=== PATIENT | male | born 1935 | race African-American/Black ===

== ENCOUNTER 2019-05-28 10:36 | Outpatient (CLI) | payer MEDICARE, OTHER ==
--- NOTE | 2019-05-28 20:07 | EKG ---
Test Reason : Blood Pressure : / mmHG Vent. Rate : 068 BPM Atrial Rate : 068 BPM P-R Int : 226 ms QRS Dur : 110 ms QT Int : 408 ms P-R-T Axes : 091 087 083 degrees QTc Int : 433 ms Sinus rhythm with 1st degree A-V block Otherwise normal ECG No previous ECGs available Confirmed by RAFAEL VARGAS, DR. Mcmahon ([id number]) on 05/28/2019 8:07:21 PM Referred By: NADYA Confirmed By:DR. Lisandro HALL MD
== END 2019-05-28 10:37 | disposition home or self-care (01) ==
LOC: LABBT 10:36
PROVIDERS: ATTEND Urology
DX: Z01.810 Encounter for preprocedural cardiovascular examination (principal); N20.0 Calculus of kidney; R31.0 Gross hematuria; R33.9 Retention of urine, unspecified
CPT/HCPCS: 81001; 87077; 87086; 87186; 93005; 93010

== ENCOUNTER 2019-06-17 08:13 | Day surgery (SDC) | payer MEDICARE, OTHER ==
[2019-06-16 10:10] VITALS: BMI 22.8
[2019-06-17] MEDS ORDERED: Levofloxacin 500 mg/D5W 100 ml Premix Bag ONE (09:08)
[2019-06-17] MEDS ORDERED: Iothalamate Meglumine 60% 50 ML VIAL FS ONE (09:47)
[2019-06-17] MEDS ORDERED: Fentanyl 100 MCG/2 ML VIAL ONE (11:22)
[2019-06-17] MEDS ORDERED: Ketorolac Tromethamine 30 MG/ML VIAL ONE (13:27)
[2019-06-17] MEDS ORDERED: Phenazopyridine HCl 97.5 MG TABLET ONE (13:28)
[2019-06-17] MEDS ORDERED: Oxybutynin 5 MG TAB ONE (13:28)
[2019-06-17] MEDS ORDERED: ePHEDrine 50 MG/ML VIAL ONE (15:46)
[2019-06-17] MEDS ORDERED: Ondansetron PF 4 MG/2 ML Vial ONE (15:46)
[2019-06-17] MEDS ORDERED: PROPOFOL 200 MG/20 ML VIAL ONE (15:46)
--- NOTE | 2019-06-17 17:35 | OP ---
DATE OF PROCEDURE: 06/17/2019 PREOPERATIVE DIAGNOSES: Bladder tumor, bladder stone. POSTOPERATIVE DIAGNOSES: Bladder tumor, bladder stone. PROCEDURES PERFORMED: Cystoscopy with bilateral retrograde pyelogram, laser cystolitholapaxy for 1 cm stone, transurethral resection of large bladder tumor. ANESTHESIA: General. COMPLICATIONS: None. ESTIMATED BLOOD LOSS: 100 mL. SPECIMEN: Bladder tumor. DESCRIPTION OF PROCEDURE: After informed consent, the patient was taken to the operating room and transferred to the table on his own power. Anesthesia was established. A time-out was performed showing the correct patient, site, and procedure. Preoperative antibiotics were administered. He was prepped and draped in the lithotomy position. I began by inserting the rigid cystoscope through the urethra down to the prostatic urethra noting a very large friable median lobe. The bladder was systematically examined noting [id number] trabeculation with several small diverticula and one large diverticulum protruding from the dome of the bladder. The large bladder tumor about 7 to 8 cm in size was just inside the lip of that diverticulum toward the patient's right side. A [place] catheter was utilized to perform bilateral retrograde pyelograms noting significant J-hooking of the ureters due to the enlarged prostate. There were no filling defects or abnormalities on retrograde pyelogram. I then used a 550 micron laser fiber to fragment the bladder stone into several pieces, which were irrigated out. I then switched to the resectoscope and using the resection loop, I removed the bladder tumor. This was somewhat difficult due to the fact that it was in a diverticulum and I did not want to resect too deeply as well as the fact that with the bladder distended with irrigation, I was only barely able to reach the tumor. I removed it in its entirety, noting no residual tumor and cauterized as best that I was able. His urine remained slightly bloody and so I elected to place a 3-way catheter. Before that, I used the [employer] evacuator to remove all specimen, which was passed off. I then placed a 22-Saudi Arabian 3-way catheter with 30 mL instilled in the balloon. I connected to continuous irrigation, which was running clear on very light drip. The patient was then awoken from anesthesia, transferred back to his hospital bed and taken to PACU in stable condition. I will evaluate him again shortly to determine if he can discharge home or if he needs to stay tonight. [place] ID: [id number]
--- NOTE | 2019-06-20 10:04 | EKG ---
Test Reason : PROEP Blood Pressure : / mmHG Vent. Rate : 078 BPM Atrial Rate : 078 BPM P-R Int : 286 ms QRS Dur : 110 ms QT Int : 394 ms P-R-T Axes : 071 -55 066 degrees QTc Int : 449 ms Sinus rhythm with 1st degree A-V block Left anterior fascicular block Abnormal ECG When compared with ECG of 28-MAY-2019 14:05, Left anterior fascicular block is now Present Confirmed by LISA LEIVA MD ([id number]) on 06/20/2019 10:04:36 AM Referred By: NADYA Confirmed By:LISA LEIVA MD
== END 2019-06-17 16:25 | disposition home or self-care (01) ==
LOC: SDC 08:13
PROVIDERS: ATTEND Urology
PROC: 0TCB8ZZ Extirpation of Matter from Bladder, Via Natural or Artificial Opening Endoscopic (ICD-10-PCS; principal; 2019-06-17)
PROC: 0T5B8ZZ Destruction of Bladder, Via Natural or Artificial Opening Endoscopic (ICD-10-PCS; 2019-06-17)
DX: C67.9 Malignant neoplasm of bladder, unspecified (principal); N32.3 Diverticulum of bladder; N21.0 Calculus in bladder; N40.1 Benign prostatic hyperplasia with lower urinary tract symptoms; R33.8 Other retention of urine; I10 Essential (primary) hypertension; E78.5 Hyperlipidemia, unspecified; M17.11 Unilateral primary osteoarthritis, right knee; Z87.891 Personal history of nicotine dependence; Z79.82 Long term (current) use of aspirin; Z79.899 Other long term (current) drug therapy
CPT/HCPCS: 76000; 88305; 93005; 93010; C1758; C1769; J1885; J1956; J3010

== ENCOUNTER 2019-07-31 06:59 | Outpatient (CLI) | payer MEDICARE, OTHER ==
[2019-07-31 15:29] LABS: #Basophils 0.1 thou/uL (0.0-0.2); #Eosinphils 0.1 thou/uL (0.0-0.7); #Lymphocytes 2.2 thou/uL (1.20-3.40); #Monocytes 0.4 thou/uL (0.11-0.59); #Neutrophils 2.5 thou/uL (1.40-6.50); %Basophils 1.1 % (0.0-1.0); %Eosinophils 2.4 % (0.0-10.0); %Lymphocytes 41.3 % (21.0-51.0); %Neutrophils 47.2 % (42.0-75.0); Hemoglobin 10.7 g/dL (14.0-18.0); Mean Corpuscular Hemoglobin 29.6 pg (27.0-31.0); Mean Corpuscular Volume 92.5 fL (78.0-98.0); Mean Platelet Volume 6.3 fL (7.4-10.4); Platelet Count 284 thou/uL (130-400); RBC Distribution Width 13.6 % (11.5-14.5); Red Blood Cell (RBC) Count 3.62 mill/uL (4.70-6.10); White Blood Cell (WBC) Count 5.4 thou/uL (4.8-10.8)
[2019-07-31 15:47] LABS: Anion Gap 12 mmol/L (10-20); BUN (Urea Nitrogen) 13 mg/dL (8.4-25.7); Calc. Creatinine Clearance 0 mL/min (70-130); Calcium 8.9 mg/dL (7.8-10.44); Carbon Dioxide 24 mmol/L (23-31); Chloride 102 mmol/L (98-107); Estimated GFR-MDRD 90; Glucose 90 mg/dL (83-110); Potassium 4.4 mmol/L (3.5-5.1); Sodium 134 mmol/L (136-145)
--- NOTE | 2019-08-01 17:57 | EKG ---
Test Reason : Blood Pressure : / mmHG Vent. Rate : 070 BPM Atrial Rate : 070 BPM P-R Int : 240 ms QRS Dur : 108 ms QT Int : 402 ms P-R-T Axes : 070 -25 058 degrees QTc Int : 434 ms Sinus rhythm with marked sinus arrhythmia with 1st degree A-V block Otherwise normal ECG When compared with ECG of 17-JUN-2019 08:30, No significant change was found Confirmed by Tiffany JEFFERSON ([id number]) on 08/01/2019 5:56:59 PM Referred By: NADYA Confirmed By:Tiffany JEFFERSON
== END 2019-07-31 07:00 | disposition home or self-care (01) ==
LOC: LABBT 06:59
PROVIDERS: ATTEND Urology
DX: Z01.818 Encounter for other preprocedural examination (principal); C67.9 Malignant neoplasm of bladder, unspecified
CPT/HCPCS: 80048; 85025; 93005; 93010

== ENCOUNTER 2019-08-05 07:40 | Day surgery (SDC) | payer MEDICARE, OTHER ==
[2019-08-05] MEDS ORDERED: Levofloxacin 500 mg/D5W 100 ml Premix Bag ONE (07:59)
[2019-08-05] MEDS ORDERED: Fentanyl 100 MCG/2 ML VIAL ONE (09:59)
[2019-08-05] MEDS ORDERED: Iothalamate Meglumine 60% 50 ML VIAL FS ONE (10:10)
[2019-08-05] MEDS ORDERED: ePHEDrine/0.9% NaCl/PF SYRINGE 50 mg/10 ml ONE (10:31)
[2019-08-05] MEDS ORDERED: Lidocaine 1% PF 5 ML VIAL ONE (10:31)
[2019-08-05] MEDS ORDERED: Ondansetron PF 4 MG/2 ML Vial ONE (10:31)
[2019-08-05] MEDS ORDERED: PROPOFOL 200 MG/20 ML VIAL ONE (10:31)
[2019-08-05] MEDS ORDERED: Ketorolac Tromethamine 30 MG/ML VIAL ONE (11:33)
[2019-08-05] MEDS ORDERED: Oxybutynin 5 MG TAB ONE (11:34)
--- NOTE | 2019-08-05 12:34 | RAD ---
EXAM: Cystogram HISTORY: Biopsy of the urinary bladder wall COMPARISON: None FINDINGS/IMPRESSION: A limited intraoperative fluoroscopic views shows contrast filling the urinary b ladder. A bubble of more dilute contrast is seen extending more superiorly. This may be within a different portion of the urinary bladder, but a contained leak is also a possibility.
--- NOTE | 2019-08-05 13:50 | OP ---
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 PROCEDURE PERFORMED: Transurethral resection of large bladder tumor, cystogram. ANESTHESIA: General. COMPLICATIONS: None. SPECIMEN: Bladder diverticulum tumor, base of tumor resection. DRAINS: A 20-[place]oz[place] Hoyos catheter placed at end of case. DESCRIPTION OF PROCEDURE: After informed consent, the patient was taken to the operating room, transferred to the table under his own power. Anesthesia was established. A time-out was performed showing the correct patient, site, and procedure. Preoperative antibiotics were administered. He was prepped and draped in the lithotomy position. The rigid cystoscope was advanced through the urethra noting a normal course and caliber of the urethra, through the prostate, noting coapting lateral lobes and a high bladder neck. The bladder was then entered and systematically examined, noting no mucosal abnormalities in the majority of the bladder. He does have a very large diverticulum off the dome of the bladder with some erythematous changes along the rim towards the right inferior side. I was able to pass the scope into the diverticulum and examined this noting about a 5-cm residual tumor bed with partial resection from his previous surgery. The bladder was filled with 120 mL of contrast and then saline until it appeared to be filled to capacity. A cystogram was performed showing a diverticulum of larger capacity than his actual bladder arising from the superior aspect of the bladder. At this point, I felt that if I controlled the irrigation flow carefully, I would be able to access the tumor in the diverticulum and so switched to the resectoscope using a resection loop. I was able to remove the bladder diverticulum tumor in its entirety. There were no abnormal areas remaining at the end of this. I then resected the edge of the diverticulum. There was no evidence of bladder rupture or perforation. All specimen was removed and passed off. I then removed a portion of the base of the resection to determine if any residual tumor persisted in this area. The bladder was then drained, reinspected, noting no bleeding. The scope was withdrawn and a 20-[place] Hoyos catheter was placed with 10 mL instilled in the balloon. This was connected to bag drainage. He was then awoken from anesthesia, transferred back to his hospital bed and taken to PACU in stable, where he will be discharged to home upon recovery. Job ID: [id number]
== END 2019-08-05 13:22 | disposition home or self-care (01) ==
LOC: SDC 07:40
PROVIDERS: ATTEND Urology
PROC: 0TBB8ZX Excision of Bladder, Via Natural or Artificial Opening Endoscopic, Diagnostic (ICD-10-PCS; principal; 2019-08-05)
DX: C67.1 Malignant neoplasm of dome of bladder (principal); N32.3 Diverticulum of bladder; I10 Essential (primary) hypertension; E78.5 Hyperlipidemia, unspecified; M17.11 Unilateral primary osteoarthritis, right knee; N40.1 Benign prostatic hyperplasia with lower urinary tract symptoms; R33.8 Other retention of urine; Z87.891 Personal history of nicotine dependence; Z79.2 Long term (current) use of antibiotics; Z79.82 Long term (current) use of aspirin; Z79.899 Other long term (current) drug therapy
CPT/HCPCS: 51600; 74430; 88307; 88342; J1885; J1956; J2001; J2405; J2704; J3010

== ENCOUNTER 2020-02-06 06:45 | Outpatient (CLI) | payer MEDICARE, OTHER ==
--- NOTE | 2020-02-09 11:48 | EKG ---
Test Reason : Blood Pressure : / mmHG Vent. Rate : 057 BPM Atrial Rate : 057 BPM P-R Int : 254 ms QRS Dur : 106 ms QT Int : 450 ms P-R-T Axes : 079 -08 052 degrees QTc Int : 438 ms Sinus bradycardia with sinus arrhythmia with 1st degree A-V block Non-specific intra-ventricular conduction delay Minimal voltage criteria for LVH, may be normal variant Abnormal ECG Confirmed by BOBBI ABREU ([id number]) on 02/09/2020 11:47:57 AM Referred By: NADYA Confirmed By:BOBBI ABREU
== END 2020-02-06 06:46 | disposition home or self-care (01) ==
LOC: LABBT 06:45
PROVIDERS: ATTEND Urology
DX: Z01.810 Encounter for preprocedural cardiovascular examination (principal); C67.9 Malignant neoplasm of bladder, unspecified
CPT/HCPCS: 93005; 93010

== ENCOUNTER 2020-02-10 05:45 | Observation (INO) | payer MEDICARE, OTHER ==
[2020-02-06 13:30] LABS: Mean Corpuscular HGB CONC 33.2 g/dL (32.0-36.0); Mean Corpuscular Hemoglobin 32.5 pg (27.0-31.0); Mean Corpuscular Volume 97.9 fL (78.0-98.0); Mean Platelet Volume 6.8 fL (7.4-10.4); Platelet Count 218 thou/uL (130-400); RBC Distribution Width 12.7 % (11.5-14.5); Red Blood Cell (RBC) Count 3.37 mill/uL (4.70-6.10); White Blood Cell (WBC) Count 4.8 thou/uL (4.8-10.8)
[2020-02-06 13:38] LABS: Anion Gap 9 mmol/L (10-20); BUN (Urea Nitrogen) 14 mg/dL (8.4-25.7); Calc. Creatinine Clearance 0 mL/min (70-130); Calcium 8.9 mg/dL (7.8-10.44); Carbon Dioxide 26 mmol/L (23-31); Chloride 106 mmol/L (98-107); Estimated GFR-MDRD Greater than 90; Glucose 90 mg/dL (83-110); Potassium 4.2 mmol/L (3.5-5.1); Sodium 137 mmol/L (136-145)
[2020-02-07 12:16] LABS: SARS-CoV-2 MS2 Positive; SARS-CoV-2 N Gene Negative; SARS-CoV-2 S Gene Negative; SARS-CoV-2 orf1ab Negative
[2020-02-10] MEDS ORDERED: Fentanyl 100 MCG/2 ML VIAL ONE (06:50)
[2020-02-10] MEDS ORDERED: Levofloxacin 500 mg/D5W 100 ml Premix Bag ONE (06:54)
[2020-02-10] MEDS ORDERED: Promethazine HCl 25 MG/ML VIAL SLOW IVP PRN (07:55)
[2020-02-10] MEDS ORDERED: Promethazine HCl 25 MG/ML VIAL IM PRN (07:55)
[2020-02-10] MEDS ORDERED: Ondansetron HCl/PF 4 MG/2 ML Vial IVP PRN (07:55)
--- NOTE | 2020-02-10 08:53 | RAD ---
EXAM: Retrograde IVP HISTORY: Bladder cancer COMPARISON: None FINDINGS/IMPRESSION: Limited intraoperative fluoroscopic views of the retrograde IVP were submitted f or interpretation. There is no evidence of hydronephrosis. Filling defects in the mid left ureter may represent air bubbles. No filling defects are seen in the right ureter.
[2020-02-10] MEDS ORDERED: Zolpidem Tartrate 5 MG TAB PO PRN (08:55)
[2020-02-10] MEDS ORDERED: diphenhydrAMINE 50 MG/ML VIAL IVP PRN (08:55)
[2020-02-10] MEDS ORDERED: hydrALAZINE 20 MG/ML VIAL SLOW IVP PRN (08:55)
[2020-02-10] MEDS ORDERED: Acetaminophen 500 MG TAB PO PRN (08:55)
[2020-02-10 10:17] VITALS: BMI 19.5
[2020-02-10] MEDS ORDERED: Lidocaine 1% PF 5 ML VIAL ONE (11:55)
[2020-02-10] MEDS ORDERED: PROPOFOL 200 MG/20 ML VIAL ONE (11:55)
[2020-02-10] MEDS ORDERED: Glycopyrrolate 0.2 MG/ML 5 ML SYRINGE ONE (11:55)
[2020-02-10] MEDS ORDERED: PHENYLEPHRINE-NS 100 MCG/ML 10 ML SYRINGE ONE (11:55)
[2020-02-10] MEDS ORDERED: Ondansetron PF 4 MG/2 ML Vial ONE (11:55)
[2020-02-10] MEDS: Sodium Chloride 0.9% 1,000 ML IV SCH ×2 (12:37→23:17)
[2020-02-10] MEDS: Amlodipine 10 MG TAB PO SCH (12:45)
[2020-02-10] MEDS: Ketorolac Tromethamine 30 MG/ML VIAL IVP SCH ×3 (13:15→23:15)
[2020-02-10] MEDS: Trospium 20 MG TAB PO SCH ×2 (13:15→20:22)
--- NOTE | 2020-02-10 18:48 | OP ---
DATE OF PROCEDURE: 02/10/2020 PREOPERATIVE DIAGNOSES: Bladder tumor, enlarged prostate with lower urinary tract symptoms. POSTOPERATIVE DIAGNOSES: Bladder tumor, enlarged prostate with lower urinary tract symptoms. PROCEDURES PERFORMED: Transurethral resection of large bladder tumor along posterior wall and medium bladder tumor of the diverticulum, transurethral resection of prostate, bilateral retrograde pyelogram. ANESTHESIA: General. COMPLICATIONS: None. BLOOD LOSS: 100 mL. SPECIMEN: Bladder tumor, prostate chips. DESCRIPTION OF PROCEDURE: After informed consent, the patient was taken to the operating room, transferred to the table under his own power. Anesthesia was established. A time-out was performed showing the correct patient, site, and procedure. Preoperative antibiotics were administered. He was prepped and draped in the lithotomy position. I began by inserting the rigid cystoscope through the urethra noting a normal course and caliber of the urethra and into the prostate, noting large coapting lateral lobes and a very large median lobe. I was unable to identify the ureters, which were located behind the median lobe. He did have a large bladder tumor emanating from the right posterior wall and a smaller bladder tumor about 2.5 to 3 cm in size along the area of previous resection in the diverticulum. There were no other mucosal abnormalities on 30 or 70-degree inspection. I then switched to the rigid resectoscope and removed the two bladder tumors, which were passed off the specimen. The resection beds were cauterized. The [employer]ik evacuator was used to remove all of the bladder specimen, which was passed off. I then performed resection of the midline prostate to allow for staging. However, due to the very large median lobe, I ended up having to completely resect the median lobe. I was concerned that I would be unable to adequately place a catheter by simply resecting a midline trough. Meticulous hemostasis was achieved, and the Ellik evacuator was used to remove the resultant prostate chips. I then switched back to the rigid cystoscope and was able to identify the ureters. A left and right retrograde pyelogram was performed showing good filling of both ureters with no hydronephrosis or filling defects in the renal pelvis. The scope was then carefully withdrawn, and a 22-Belgian 3-way catheter was placed with 30 mL instilled in the balloon. This was connected to CBI and bag drainage. At this point, the procedure was completed. He was brought down from lithotomy, awoken from anesthesia and transferred back to his hospital bed. He was taken to PACU and be admitted overnight. Job ID: [id number]
[2020-02-10] MEDS ORDERED: Atorvastatin Calcium 10 MG TAB PO SCH (21:00)
[2020-02-10] MEDS ORDERED: Aspirin 81 mg Enteric Coated Tablet PO SCH (21:00)
[2020-02-11] MEDS: Ketorolac Tromethamine 30 MG/ML VIAL IVP SCH (05:46)
[2020-02-11] MEDS: Sodium Chloride 0.9% 1,000 ML IV SCH (08:12)
[2020-02-11 08:21] VITALS: BP 169/76; TEMP 97.8
[2020-02-11] MEDS: Amlodipine 10 MG TAB PO SCH (08:56)
[2020-02-11] MEDS: Trospium 20 MG TAB PO SCH (10:54)
--- NOTE | 2020-02-12 03:14 | DIS ---
DATE OF ADMISSION: 02/10/2020 DATE OF DISCHARGE: 02/11/2020 CHIEF COMPLAINT: Bladder cancer. DISCHARGE DIAGNOSES: Malignant tumor bladder, enlarged prostate, and urinary retention. HOSPITAL COURSE: The patient underwent a transurethral resection of large bladder tumor, medium bladder tumor, and resection of prostate. He was maintained on continuous bladder irrigation overnight with urine clear the next morning. He was tolerating oral intake and having no discomfort. He was deemed stable for discharge home at that point. PHYSICAL EXAMINATION: Discharge exam; GENERAL: No acute distress, conversant. HEART: Regular rate and rhythm. LUNGS: Unlabored breathing. Symmetric chest expansion. ABDOMEN: Soft, nontender, and nondistended. No suprapubic tenderness. No flank tenderness. Catheter in good position, draining clear urine, off CBI. SKIN: Warm and dry. DISCHARGE MEDICATIONS: 1. Bactrim. 2. Oxybutynin. DISCHARGE PLAN: Pending pathology, I will likely perform a void trial in 2 weeks. Job ID: [id number]
== END 2020-02-11 10:04 | disposition home or self-care (01) ==
LOC: SDC 05:45 → ONC 07:33
PROVIDERS: ADMIT Urology; ATTEND Urology
PROC: 0TBB8ZX Excision of Bladder, Via Natural or Artificial Opening Endoscopic, Diagnostic (ICD-10-PCS; principal; 2020-02-10)
PROC: 0VB08ZZ Excision of Prostate, Via Natural or Artificial Opening Endoscopic (ICD-10-PCS; 2020-02-10)
DX: N40.1 Benign prostatic hyperplasia with lower urinary tract symptoms (principal); R33.8 Other retention of urine; C67.4 Malignant neoplasm of posterior wall of bladder; I10 Essential (primary) hypertension; E78.5 Hyperlipidemia, unspecified; M17.11 Unilateral primary osteoarthritis, right knee; Z87.891 Personal history of nicotine dependence; Z79.82 Long term (current) use of aspirin; Z79.899 Other long term (current) drug therapy; Z98.890 Other specified postprocedural states
CPT/HCPCS: 52240; 52601; 74420; 80048; 85027; 86850; 86900; 86901; 88305; 88307; U0003; 87635; 96361; 96374; 96375; G0378; J1885; J1956; J2001; J2405; J2704; J3010

== ENCOUNTER 2020-05-12 21:30 | Inpatient (IN) | payer MEDICARE, OTHER ==
--- NOTE | 2020-05-12 23:22 | PDOC.FPRHP ---
- History of Present Illness Chief Complaint: chills History of Present Illness: 84 y/o M with PMHx bladder cancer, HTN, HLD transferred from [place] ER for sepsis 2/2 UTI. Patient states he got a treatment for his bladder cancer earlier today, subsequently developed chills and his daughter took him to the ED where he was found to have a fever of 102F. Workup significant for UA with nitrites, bacteria, WBC, and a mild leukocytosis. Transferred to our facility due to meeting sepsis criteria with fever, leukocytosis, and infectious source. He has an indwelling crane catheter and has had several infections/positive urine cultures in the past. Patient states he last had a UTI approximately 3 weeks ago. He was placed on abx for this although he cannot recall which abx. He planned to f/u with Dr. Gunter for his UTIs soon. He denies any dysuria, malodorous urine, pain associated with crane, or discharge from crane. He does endorse some reddening of his urine. ED Course: given rocephin, cefepime, vanc - Allergies/Adverse Reactions Allergies Allergy/AdvReac Type Severity Reaction Status Date / Time No Known Allergies Allergy Verified 04/02/20 02:09 - Home Medications Medication Instructions Recorded Confirmed Type Aspirin [Aspir-Low] 81 mg PO HS 01/26/13 05/13/20 History Amlodipine [Norvasc] 10 mg PO DAILY 05/28/19 05/13/20 History Atorvastatin Calcium 10 mg PO HS 05/28/19 05/13/20 History Ondansetron [Zofran ODT] 4 mg PO Q6HR PRN 04/02/20 05/13/20 History Ciprofloxacin HCl [Cipro] 500 mg PO BID 05/13/20 05/13/20 History - History PMHx: bladder cancer, HTN, HLD PSHx: bladder tumor surgery FHx: prostate cancer, colon cancer Social: former smoker, former etoh use - Review of Systems General: reports: fever/chills. denies: weight/appetite/sleep changes ENT: denies: nasal congestion, rhinorrhea Respiratory: denies: cough, congestion, shortness of breath Cardiovascular: denies: chest pain, palpitation, edema Gastrointestinal: reports: constipation. denies: nausea, vomiting, diarrhea, abdominal pain Genitourinary: denies: dysuria, polyuria, discharge Skin: denies: rashes Musculoskeletal: denies: pain Neurological: denies: weakness - Vital signs BP: [127/57] HR: [81] RR: [16] Tmax: [98.3F] Pox: [100]% on [RA] Wt: [58.87 kg] - Physical Exam Constitutional: NAD, awake, alert and oriented, other (thin, appears malnourished) HEENT: EOMI, conjunctiva clear, grossly normal vision, grossly normal hearing, MMM, good dention, other (temporal wasting) Neck: supple, no LAD Chest: no-tender to palpation Heart: RRR, normal S1/S2, no murmurs/rubs/gallops, pulses present, no edema Lungs: CTAB, no respiratory distress Abdomen: soft, non-tender, bowel sounds present, other (crane catheter in place) Musculoskeletal: normal structure Neurological: no focal deficit Skin: no rash/lesions Heme/Lymphatic: no unusual bruising or bleeding, no LAD Psychiatric: normal mood and affect, good judgment and insight, intact recent and remote memory FMR H&P: Results - Labs Result Diagrams: 05/13/20 06:25 05/13/20 06:25 FMR H&P: A/P - Plan Sepsis 2/2 UTI Meeting sepsis criteria with mild leukocytosis and fever to 102F with UA sugge stive of UTI. Likely related to his indwelling crane catheter. Has grown multiple bacteria in past including a pseudomonas resistant to fluoroquinolones. s/p vanc, rocephin, cefepime in ED. - abx: vanc + cefepime, de-escalate pending urine cx - continue to monitor vitals, leukocytosis - f/u blood cx Recurrent UTIs Patient may be chronically colonized given indwelling catheter. Reports he was to f/u with ID Dr. Gunter for this. Bladder cancer s/p surgical intervention with indwelling crane catheter and continued intravesicular therapy. Unclear if fever 2/2 sepsis or intravesicular therapy on day of admission. - follows with Dr. Castro, urology HTN Normotensive in the setting of sepsis - will hold home anti-hypertensives HLD Previously treated with statin but reports he was told to stop taking this - held statin possible malnutrition Reports history of weight loss which has recently been improving. Temporal wasting noted on exam. - consider dietary consult FMR H&P: Upper Level - Plan Date/Time: 05/12/20 2322 I, [Marilyn Lujan ], have evaluated this patient and agree with findings/plan as outlined by manager of internal audit resident. Pertinent changes/additions are listed here. 84 yo M with bladder CA and chronic crane admitted for sepsis 2/2 UTI as [facility] TFX. Currently undergoing BCG treatment with Dr. Castro for his bladder CA. Received treatment this morning, noted fever today of 102F. Came to the ER. Endorsed fevers, chills, nausea. No emesis. dysuria. Dx with bladder CA in January with subsequent transurethral resection of bladder & prostate. Has had chronic crane since then. Was recently dx with UTI last week, has been taking ciprofloxacin. Record review shows pt with multiple UTIs, likely all catheter associated. Denies flank pain. Denies issues with urine output. Feels well otherwise. In ER was febrile, tachycardic with mild luekocytosis. Given 1g vanc, 2g cefepime, 2g rocephin and 30cc/kg bolus . PE: Gen- NAD CV- RRR Resp- CTAB, no distress Abd- Soft, ND, NT Back- No flank pain - Presence of indwelling crane. No purulence noted at entry site. Patient appears well. A/P: #Sepsis 2/2 UTI -Likely crane associated -UA: +nitrities, LE, WBCs -Leukocytosis, febrile, tachyardic- s/p 30cc/kg bolus -s/p Vanc, cefepime, & rocephin. Will continue vanc & cefepime given hx of enterococcus & pseudomonas UTI along with recent fluoroquinolon euse -Hemo stable, admit to medical/inpt -Pending Bcx, UCx -Consider treatment as cause of fever since pt appears well #DESHAWN vs. CKD -s/p fluid boluses, repeat BMP in AM #Recurrent UTIs -Likely 2/2 chronic crane -F/u uro OP #Bladder CA -s/p transurethral prostate & bladder resection -continue following with urology dvt ppx: lovenox gi ppx: n/i abx: vanc & cefepime dispo: >2 midnights pcp: Dr. Cortez Addendum - Attending - Attending Attestation Date/Time: 05/13/202054 I personally evaluated the patient and discussed the management with Dr. Jackson. I agree with the History, Examination, Assessment and Plan documented above with any addition or exceptions noted below. Essentially well appearing elderly man. In light of his + nitrites, prompt improvement post antibiotics, I think he either has a bacterial infection or mild post-bcg instillation symptoms as being more common than bcg sepsis. Patrick so will monitor overnight.
[2020-05-13 00:52] VITALS: BMI 18.1
[2020-05-13] MEDS: Sodium Chloride 0.9% 1,000 ML IV SCH ×2 (02:31→08:41)
[2020-05-13] MEDS ORDERED: Cefepime 2 GM in Sodium Chloride 0.9% 100 ML IVPB SCH (03:00)
[2020-05-13] MEDS: Cefepime 2 GM in Sodium Chloride 0.9% 100 ML IVPB SCH ×3 (04:11→19:28)
[2020-05-13] MEDS: Vancomycin 1 GM in Premix Bag 1 BAG IVPB SCH ×2 (05:14→17:12)
[2020-05-13 06:38] LABS: #Eosinphils 0.1 thou/uL (0.0-0.7); #Lymphocytes 1.5 thou/uL (1.20-3.40); #Monocytes 0.7 thou/uL (0.11-0.59); #Neutrophils 6.5 thou/uL (1.40-6.50); %Eosinophils 0.6 % (0.0-10.0); %Lymphocytes 17.3 % (21.0-51.0); %Monocytes 8.2 % (0.0-10.0); %Neutrophils 73.9 % (42.0-75.0); Hemoglobin 8.1 g/dL (14.0-18.0); Mean Corpuscular HGB CONC 31.5 g/dL (32.0-36.0); Mean Corpuscular Volume 85.9 fL (78.0-98.0); Mean Platelet Volume 6.6 fL (7.4-10.4); Platelet Count 277 thou/uL (130-400); RBC Distribution Width 14.8 % (11.5-14.5); Red Blood Cell (RBC) Count 2.98 mill/uL (4.70-6.10); White Blood Cell (WBC) Count 8.8 thou/uL (4.8-10.8)
[2020-05-13 06:56] LABS: Anion Gap 8 mmol/L (10-20); BUN (Urea Nitrogen) 16 mg/dL (8.4-25.7); Calc. Creatinine Clearance 53 mL/min (70-130); Carbon Dioxide 23 mmol/L (23-31); Chloride 104 mmol/L (98-107); Estimated GFR-MDRD Greater than 90; Glucose 104 mg/dL (83-110); Potassium 4.1 mmol/L (3.5-5.1); Sodium 131 mmol/L (136-145)
[2020-05-13] MEDS: Enoxaparin Sodium 40 MG/0.4 ML SYRINGE SC SCH (08:37)
--- NOTE | 2020-05-13 09:50 | PDOC.FM ---
- Subjective Subjective: No complaints this morning. Does not feel like he fevered overnight. No abdominal pain/discomfort. No events overnight. - Objective Vital Signs & Weight: Vital Signs (12 hours) Temp Pulse Resp BP Pulse Ox 05/13/20 08:30 99 05/13/20 07:42 98.7 F 65 18 105/52 L 99 05/13/20 04:13 98.7 F 64 16 122/57 L 98 05/13/20 01:05 100 05/13/20 00:32 98.3 F 81 16 127/57 L 100 Weight Weight 58.876 kg Result Diagrams: 05/13/20 06:25 05/13/20 06:25 Phys Exam - Physical Examination Constitutional: NAD thin Respiratory: no wheezing, no rales, clear to auscultation bilateral Cardiovascular: RRR Gastrointestinal: soft, non-tender, no distention, positive bowel sounds Musculoskeletal: pulses present, edema present Neurological: moves all 4 limbs Psychiatric: normal affect, A&O x 3 Skin: no rash, cap refill <2 seconds Dx/Plan - Plan Plan: Sepsis 2/2 UTI -sepsis criteria resolved -added culture to urine sample from [facility], urine culture from [facility] on 02/04 shows psuedomonas resistant to levoquin - abx: vanc + cefepime, de-escalate pending urine cx - continue to monitor vitals, leukocytosis - f/u blood cx Recurrent UTIs Patient may be chronically colonized given indwelling catheter. Reports he was to f/u with ID Dr. Gunter for this. Bladder cancer -s/p intravesicular bcg tx - follows with Dr. Castro, urology - discussed case, will see patient today. does not believe fevers related to bcg tx HTN Normotensive in the setting of sepsis - will hold home anti-hypertensives HLD Previously treated with statin but reports he was told to stop taking this - held statin possible malnutrition - consider dietary consult Plan: Will continue to treat with IV abx. Appreciate recs from Dr. Castro. Awaiting culture for sensitivities - hx of resistant UTI's. Addendum - Attending - Attending Attestation Date/Time: 05/13/20 [id number] I personally evaluated the patient and discussed the management with Dr. Treadwell. I agree with the History, Examination, Assessment and Plan documented above with any addition or exceptions noted below. The patient was feeling better today. Continue IV antibiotics. Awaiting blood and urine cultures. Dr. Castro notified that pt is in the hospital.
[2020-05-13] MEDS ORDERED: Ondansetron ODT 4 MG TAB PO PRN (10:48)
[2020-05-13 12:22] LABS: SARS-CoV-2 MS2 Positive; SARS-CoV-2 N Gene Negative; SARS-CoV-2 S Gene Negative; SARS-CoV-2 by NAA Not Detected (NotDetected); SARS-CoV-2 orf1ab Negative
[2020-05-13] MEDS ORDERED: Vancomycin 1 GM in Premix Bag 1 BAG IVPB SCH (18:00)
--- NOTE | 2020-05-13 20:02 | CON ---
DATE OF CONSULTATION: 05/13/2020 CHIEF COMPLAINT: Fevers. REASON FOR CONSULTATION: Urinary tract infection. HISTORY OF PRESENT ILLNESS: This is an 84-year-old male, followed by me for history of bladder cancer with tumor resected from his diverticulum with BCG therapy afterwards. He did have a recurrence after BCG induction near the trigone and is now currently undergoing re-induction BCG. He has myogenic failure with urinary retention, managed with indwelling Hoyos catheter and he has been having recurrent urinary tract infections. His most recent BCG was yesterday. Apparently, he developed fever at home with shaking and was taken to his local hospital, where he was febrile to 102. He was transferred to [place], where he was treated with broad-spectrum antibiotics with prompt resolution of his fever. Today, he tells me that he is not having any appreciable symptoms. He denies hematuria, suprapubic pain, flank pain, nausea, vomiting, fevers, or chills. His vitals have been stable overnight. PAST MEDICAL HISTORY: Bladder cancer, enlarged prostate, hypertension, urinary retention. PAST SURGICAL HISTORY: Transurethral resection of bladder tumor x2. FAMILY HISTORY: Positive for prostate cancer and colon cancer. SOCIAL HISTORY: Former smoker. No current substance abuse. ALLERGIES: NO KNOWN DRUG ALLERGIES. HOME MEDICATIONS: 1. Aspirin. 2. Amlodipine. 3. Atorvastatin. 4. Ondansetron. 5. Cipro. REVIEW OF SYSTEMS: A 12-point review of systems is negative except as mentioned in my HPI. PHYSICAL EXAMINATION: VITAL SIGNS: Febrile to 102 late last night. Otherwise, he has been afebrile with stable vitals. GENERAL: No acute distress. Conversant. HEENT: Head, normocephalic and atraumatic. Extraocular movements intact. NECK: Supple. Trachea midline. HEART: Regular rate and rhythm. LUNGS: Unlabored breathing. Symmetric chest expansion. ABDOMEN: Soft, nontender, nondistended. No suprapubic tenderness. No flank tenderness. Hoyos catheter in good position, draining clear urine. SKIN: Warm and dry. No peripheral edema or cyanosis. NEUROLOGIC: Alert and oriented x3. PSYCHIATRIC: Normal mood and affect. LABORATORY DATA: Reviewed. White count 8. Creatinine 0.85. Initial Gram stain, no organisms noted. ASSESSMENT AND PLAN: Urinary tract infection, bladder cancer, BCG therapy. The patient has not received treatment for BCG sepsis and yet has dramatically improved from yesterday. In my opinion, this suggests that his infection was from atypical bacteria. We will await urine culture results and if he does well overnight, we can likely send him home tomorrow with antibiotics based on his culture for 2 weeks. The patient and I discussed his situation and I advised that we hold off on any further BCG therapy for another three weeks. At that point, I will perform cystoscopy in the office. We will need to carefully consider further BCG therapy will be beneficial or if he needs to consider hospice versus radical cystectomy. Job ID: [id number]
[2020-05-13] MEDS: Aspirin 81 mg Enteric Coated Tablet PO SCH (20:22)
[2020-05-14] MEDS: Cefepime 2 GM in Sodium Chloride 0.9% 100 ML IVPB SCH ×3 (03:37→20:18)
[2020-05-14 05:49] LABS: Vancomycin, Trough 11.9 ug/mL
[2020-05-14] MEDS: Vancomycin HCl 750 MG in Sodium Chloride 0.9% 250 ML 250 ML IVPB SCH ×3 (06:57→22:10)
[2020-05-14] MEDS: Enoxaparin Sodium 40 MG/0.4 ML SYRINGE SC SCH (08:58)
--- NOTE | 2020-05-14 10:07 | PDOC.FM ---
- Subjective Subjective: No complaints this morning. Has not fevered again. Saw Dr. Castro last night and discussed ongoing treatment plan. No events overnight. - Objective Vital Signs & Weight: Vital Signs (12 hours) Temp Pulse Resp BP Pulse Ox 05/14/20 07:54 98.1 F 69 18 118/57 L 100 05/13/20 23:52 97.5 F L 71 16 141/65 H 100 Weight Admit Weight 58.876 kg Weight 58.876 kg I&O: 05/13/20 05/14/20 05/15/20 06:59 06:59 06:59 Intake Total 1635 Output Total 1225 Balance 410 Result Diagrams: 05/15/20 06:10 05/15/20 06:10 Phys Exam - Physical Examination Constitutional: NAD HEENT: sclera anicteric Respiratory: clear to auscultation bilateral Cardiovascular: RRR soft systolic murmur Gastrointestinal: soft Musculoskeletal: no edema, pulses present Neurological: moves all 4 limbs Psychiatric: normal affect, A&O x 3 Skin: cap refill <2 seconds Dx/Plan - Plan Plan: Sepsis 2/2 UTI -abx: vanc and cefepime -awaiting cultures for de-escalation and PO transition Bladder cancer -s/p intravesicular bcg tx - follows with Dr. Castro, urology - discussed case, will see patient today. does not believe fevers related to bcg tx - plan to dc tx x3 weeks and outpt cystoscopy HTN Normotensive in the setting of sepsis - will hold home anti-hypertensives HLD Previously treated with statin but reports he was told to stop taking this - held statin possible malnutrition - consider dietary consult Plan: Awaiting cultures to adjust abx for outpt tx. Addendum - Attending - Attending Attestation Date/Time: 05/14/20 1820 I personally evaluated the patient and discussed the management with Dr. Treadwell. I agree with the History, Examination, Assessment and Plan documented above with any addition or exceptions noted below. The patient is feeling much better. Awaiting urine culture results. Will continue on broad spectrum antibiotics. Appreciate urology recs.
--- NOTE | 2020-05-14 11:15 | PRG ---
DATE OF SERVICE: 05/14/2020 SUBJECTIVE: No acute events overnight. He is no longer having any fevers and denies any discomfort, nausea, flank pain, or suprapubic pain. OBJECTIVE: VITAL SIGNS: Afebrile, vital signs stable. Good urine output. GENERAL: No acute distress. Conversant. HEART: Regular rate and rhythm. ABDOMEN: Soft, nontender, nondistended. CHEST: Unlabored breathing. Symmetric chest expansion. No suprapubic tenderness or flank tenderness. : Hoyos catheter draining clear yellow urine. LABORATORY DATA: Urine culture pending. ASSESSMENT: Hospital day 2, febrile urinary tract infection following BCG. This responded appropriately to broad-spectrum antibiotics without specific tuberculosis agents. He has been stable since yesterday. Once his urine culture results, he can be discharged home with antibiotics for 7 days. I will see him in my clinic in 3 weeks to perform cystoscopy and begin discussing options from here. Job ID: [id number]
[2020-05-14] MEDS: Aspirin 81 mg Enteric Coated Tablet PO SCH (20:19)
[2020-05-15] MEDS: Cefepime 2 GM in Sodium Chloride 0.9% 100 ML IVPB SCH ×3 (03:58→20:05)
[2020-05-15 05:14] LABS: Vancomycin, Trough 18.1 ug/mL
--- NOTE | 2020-05-15 05:32 | PDOC.FM ---
- Subjective Subjective: Patient reports having BM yesterday that was normal consistency. Reports decreased appetite but is taking the shakes provided. NAEO. - Objective Vital Signs & Weight: Vital Signs (12 hours) Temp Pulse Resp BP Pulse Ox 05/14/20 20:20 98.5 F 68 16 144/64 H 100 Weight Admit Weight 58.876 kg Weight 58.876 kg I&O: 05/13/20 05/14/20 05/15/20 06:59 06:59 06:59 Intake Total 1635 1400 Output Total 1225 2350 Balance 410 -950 Result Diagrams: 05/15/20 06:10 05/15/20 06:10 Phys Exam - Physical Examination Constitutional: NAD resting comfortably in bed Respiratory: no wheezing, clear to auscultation bilateral Cardiovascular: RRR, no significant murmur Gastrointestinal: soft, non-tender Musculoskeletal: no edema, pulses present Neurological: non-focal, moves all 4 limbs Psychiatric: normal affect, A&O x 3 Skin: normal turgor, cap refill <2 seconds Dx/Plan (1) Bladder cancer Status: Acute (2) Indwelling Hoyos catheter present Code(s): Z97.8 - PRESENCE OF OTHER SPECIFIED DEVICES Status: Chronic (3) HTN (hypertension) Code(s): I10 - ESSENTIAL (PRIMARY) HYPERTENSION Status: Chronic (4) HLD (hyperlipidemia) Code(s): E78.5 - HYPERLIPIDEMIA, UNSPECIFIED Status: Chronic (5) Malnutrition Code(s): E46 - UNSPECIFIED PROTEIN-CALORIE MALNUTRITION Status: Chronic - Plan Plan: Sepsis 2/2 UTI -abx: vanc and cefepime -awaiting u cx for de-escalation and PO transition. Bl NGTD Bladder cancer -s/p intravesicular bcg tx - follows with Dr. Castro, urology, appreciate recs - DC with abx x 7 days after cultures/sensitivities result -likely dc tomorrow or Sunday HTN - will resume home medications today HLD Previously treated with statin but reports he was told to stop taking this - held statin Moderate malnutrition - ensure supplementation, regular diet Hyponatremia -131 on 05/14, improved to 134 today Plan: Awaiting cultures to adjust abx for outpt tx. Called lab, hopefully cx and sensitivities will result by tomorrow. Collected at the [facility]
[2020-05-15] MEDS: Vancomycin HCl 750 MG in Sodium Chloride 0.9% 250 ML 250 ML IVPB SCH ×3 (05:40→21:06)
[2020-05-15 06:19] LABS: #Basophils 0.1 thou/uL (0.0-0.2); #Eosinphils 0.3 thou/uL (0.0-0.7); #Lymphocytes 1.8 thou/uL (1.20-3.40); #Monocytes 0.8 thou/uL (0.11-0.59); #Neutrophils 4.2 thou/uL (1.40-6.50); %Basophils 1.5 % (0.0-1.0); %Eosinophils 4.6 % (0.0-10.0); %Lymphocytes 24.7 % (21.0-51.0); %Monocytes 11.6 % (0.0-10.0); %Neutrophils 57.6 % (42.0-75.0); Mean Corpuscular HGB CONC 30.7 g/dL (32.0-36.0); Mean Corpuscular Hemoglobin 26.7 pg (27.0-31.0); Mean Corpuscular Volume 87.1 fL (78.0-98.0); Mean Platelet Volume 6.7 fL (7.4-10.4); Platelet Count 283 thou/uL (130-400); RBC Distribution Width 14.8 % (11.5-14.5); Red Blood Cell (RBC) Count 3.36 mill/uL (4.70-6.10); White Blood Cell (WBC) Count 7.3 thou/uL (4.8-10.8)
[2020-05-15 06:32] LABS: Anion Gap 11 mmol/L (10-20); BUN (Urea Nitrogen) 12 mg/dL (8.4-25.7); Calc. Creatinine Clearance 62 mL/min (70-130); Calcium 8.3 mg/dL (7.8-10.44); Carbon Dioxide 23 mmol/L (23-31); Chloride 104 mmol/L (98-107); Estimated GFR-MDRD Greater than 90; Glucose 100 mg/dL (83-110); Potassium 4.1 mmol/L (3.5-5.1); Sodium 134 mmol/L (136-145)
[2020-05-15] MEDS: Amlodipine 10 MG TAB PO SCH (07:57)
[2020-05-15] MEDS: Enoxaparin Sodium 40 MG/0.4 ML SYRINGE SC SCH (07:58)
--- NOTE | 2020-05-15 18:11 | PRG ---
DATE OF SERVICE: 05/15/2020 Please see the note from Dr. Collins for which I agreed. The patient was seen, evaluated, discussed, and examined with the residents by bedside. The day of hospitalization 3 for this gentleman with chronic indwelling Hoyos because of bladder cancer. Has sepsis secondary to urinary tract infection and is currently on cefepime and vancomycin, and we are waiting on urine culture to find out which p.o. antibiotic we can switch in to because, otherwise physically, he is doing tremendously better, and I appreciate Dr. Castro's recommendations. Job ID: [id number]
[2020-05-15] MEDS: Aspirin 81 mg Enteric Coated Tablet PO SCH (20:07)
[2020-05-16] MEDS: Cefepime 2 GM in Sodium Chloride 0.9% 100 ML IVPB SCH ×3 (04:21→20:44)
[2020-05-16] MEDS: Vancomycin HCl 750 MG in Sodium Chloride 0.9% 250 ML 250 ML IVPB SCH (05:21)
[2020-05-16 06:34] LABS: #Eosinphils 0.4 thou/uL (0.0-0.7); #Monocytes 0.6 thou/uL (0.11-0.59); #Neutrophils 3.2 thou/uL (1.40-6.50); %Eosinophils 5.9 % (0.0-10.0); %Lymphocytes 32.3 % (21.0-51.0); %Monocytes 9.5 % (0.0-10.0); %Neutrophils 52.3 % (42.0-75.0); Hemoglobin 8.7 g/dL (14.0-18.0); Mean Corpuscular HGB CONC 31.2 g/dL (32.0-36.0); Mean Corpuscular Hemoglobin 27.1 pg (27.0-31.0); Mean Corpuscular Volume 86.8 fL (78.0-98.0); Mean Platelet Volume 8.4 fL (7.4-10.4); Platelet Count 251 thou/uL (130-400); RBC Distribution Width 14.8 % (11.5-14.5); Red Blood Cell (RBC) Count 3.22 mill/uL (4.70-6.10); White Blood Cell (WBC) Count 6.1 thou/uL (4.8-10.8)
[2020-05-16 06:51] LABS: Anion Gap 10 mmol/L (10-20); BUN (Urea Nitrogen) 13 mg/dL (8.4-25.7); Calc. Creatinine Clearance 58 mL/min (70-130); Calcium 8.2 mg/dL (7.8-10.44); Carbon Dioxide 24 mmol/L (23-31); Chloride 104 mmol/L (98-107); Estimated GFR-MDRD Greater than 90; Glucose 103 mg/dL (83-110); Potassium 3.9 mmol/L (3.5-5.1); Sodium 134 mmol/L (136-145)
--- NOTE | 2020-05-16 07:10 | PDOC.FM ---
- Subjective Subjective: No complaints today. He is wanting to go home. Eating, drinking, stooling with no concerns. No pain. - Objective Vital Signs & Weight: Vital Signs (12 hours) Temp Pulse Resp BP Pulse Ox 05/15/20 20:00 98 05/15/20 19:17 98.1 F 56 L 16 124/58 L 98 Weight Admit Weight 58.876 kg Weight 58.876 kg I&O: 05/15/20 05/16/20 05/17/20 06:59 06:59 06:59 Intake Total 2257 440 Output Total 3450 950 Balance -1193 -510 Result Diagrams: 05/16/20 06:14 05/16/20 06:14 Phys Exam - Physical Examination Constitutional: NAD cachectic, lying in bed Respiratory: no wheezing, clear to auscultation bilateral Cardiovascular: RRR, no significant murmur Gastrointestinal: soft, non-tender, no distention Musculoskeletal: no edema, pulses present Neurological: non-focal, moves all 4 limbs Psychiatric: normal affect, A&O x 3 Skin: normal turgor, cap refill <2 seconds Dx/Plan (1) Bladder cancer Status: Acute (2) Indwelling Hoyos catheter present Code(s): Z97.8 - PRESENCE OF OTHER SPECIFIED DEVICES Status: Chronic (3) HTN (hypertension) Code(s): I10 - ESSENTIAL (PRIMARY) HYPERTENSION Status: Chronic (4) HLD (hyperlipidemia) Code(s): E78.5 - HYPERLIPIDEMIA, UNSPECIFIED Status: Chronic (5) Malnutrition Code(s): E46 - UNSPECIFIED PROTEIN-CALORIE MALNUTRITION Status: Chronic - Plan Plan: Sepsis 2/2 Pseudomonal UTI -abx: vanc and cefepime -Bl cx NGTD @ 48 hrs -Multiresistant drug. -Sensitive to amikacin, cefepime, ceftazidime, meropenem, zosyn, tobramycin. Resistant to cipro, gent, levaquin -DC vanc -Will discuss what to DC to home on, consider consult with Dr. Gunter Bladder cancer -s/p intravesicular bcg tx - follows with Dr. Castro, urology, appreciate recs - recs DC with abx x 7 days after cultures/sensitivities result -likely dc today or Sunday once antiobiotic regimen established HTN - home meds HLD Previously treated with statin but reports he was told to stop taking this - held statin Moderate malnutrition - ensure supplementation, regular diet Hyponatremia, stable -134 Plan: Need to establish outpatient antibiotic regimen for multi-drug resistant pseudomonal UTI, then DC to home. Home possibly today or tomorrow.
[2020-05-16] MEDS: Enoxaparin Sodium 40 MG/0.4 ML SYRINGE SC SCH (08:49)
[2020-05-16] MEDS: Amlodipine 10 MG TAB PO SCH (08:49)
--- NOTE | 2020-05-16 10:26 | PRG ---
DATE OF SERVICE: 05/16/2020 Please see the note from Dr. Collins, for which I agree. The patient was seen and evaluated, discussed, and examined with the residents by bedside. This gentleman is here for UTI because of a chronic indwelling Hoyos. Urine culture grew out Pseudomonas that is fairly lópez resistant, although Infectious Disease to see if they want to do a PICC line and outpatient IV antibiotics versus a trial of quinolones. Symptom summers, he is doing better, so disposition will be based on that decision. Job ID: [id number]
[2020-05-16] MEDS: Aspirin 81 mg Enteric Coated Tablet PO SCH (20:44)
[2020-05-17] MEDS: Cefepime 2 GM in Sodium Chloride 0.9% 100 ML IVPB SCH ×3 (04:59→20:00)
--- NOTE | 2020-05-17 05:06 | PDOC.FM ---
- Subjective Subjective: Pt resting comfortably at bedside. No acute events overnight. States that he is feeling well, no complaints at this time. - Objective Vital Signs & Weight: Vital Signs (12 hours) Temp Pulse Resp BP Pulse Ox 05/16/20 20:00 98.3 F 67 16 142/67 H 99 Weight Admit Weight 58.876 kg Weight 58.876 kg I&O: 05/15/20 05/16/20 05/17/20 06:59 06:59 06:59 Intake Total 2257 440 1528 Output Total 3450 950 1325 Balance -1193 -510 203 Result Diagrams: 05/16/20 06:14 05/16/20 06:14 Phys Exam - Physical Examination Constitutional: NAD HEENT: PERRLA Respiratory: no wheezing, no rales, no rhonchi Cardiovascular: RRR, no significant murmur Gastrointestinal: soft, non-tender, no distention, positive bowel sounds Musculoskeletal: no edema, pulses present Neurological: non-focal, normal sensation, moves all 4 limbs Psychiatric: normal affect, A&O x 3 Skin: no rash, normal turgor, cap refill <2 seconds Dx/Plan (1) Bladder cancer Status: Acute (2) HLD (hyperlipidemia) Code(s): E78.5 - HYPERLIPIDEMIA, UNSPECIFIED Status: Chronic (3) HTN (hypertension) Code(s): I10 - ESSENTIAL (PRIMARY) HYPERTENSION Status: Chronic (4) Indwelling Hoyos catheter present Code(s): Z97.8 - PRESENCE OF OTHER SPECIFIED DEVICES Status: Chronic (5) Malnutrition Code(s): E46 - UNSPECIFIED PROTEIN-CALORIE MALNUTRITION Status: Chronic Qualifiers: Malnutrition type: unspecified type Qualified Code(s): E46 - Unspecified protein-calorie malnutrition - Plan Plan: ##Sepsis 2/2 Pseudomonal UTI -abx: vanc and cefepime started initially. vanc dc'd and continued on cefepime. -Bl cx NGTD @ 48 hrs -Hx of MDR UTI -Sensitive to amikacin, cefepime, ceftazidime, meropenem, zosyn, tobramycin. R esistant to cipro, gent, levaquin -plan to complete 7 days of IV abx total ##Bladder cancer -being treated by Dr. Castro for the past 6 months -s/p intravesicular bcg tx -recs DC with abx x 7 days ##HTN - home meds ##HLD Previously treated with statin but reports he was told to stop taking this - held statin ##Moderate malnutrition - ensure supplementation, regular diet ##Hyponatremia, stable -134 Dispo: plan to complete 7 days total of IV antibiotics. d/c likely tomorrow. Addendum - Attending - Attending Attestation Date/Time: 05/17/20 1311 I personally evaluated the patient and discussed the management with Dr. Leonard. I agree with the History, Examination, Assessment and Plan documented above with any addition or exceptions noted below.
[2020-05-17 05:31] LABS: Vancomycin, Trough 10.1 ug/mL
[2020-05-17] MEDS: Amlodipine 10 MG TAB PO SCH (08:32)
[2020-05-17] MEDS: Enoxaparin Sodium 40 MG/0.4 ML SYRINGE SC SCH (08:32)
[2020-05-17] MEDS: Aspirin 81 mg Enteric Coated Tablet PO SCH (20:00)
[2020-05-18] MEDS: Cefepime 2 GM in Sodium Chloride 0.9% 100 ML IVPB SCH ×3 (04:41→16:01)
--- NOTE | 2020-05-18 05:16 | PDOC.FM ---
- Subjective Subjective: Pt resting comfortably in bed this AM. No acute events overnight. States that he is doing well and has no complaints this AM. - Objective Vital Signs & Weight: Vital Signs (12 hours) Temp Pulse Resp BP Pulse Ox 05/17/20 19:52 98.4 F 66 16 132/61 100 Weight Admit Weight 58.876 kg Weight 58.876 kg I&O: 05/16/20 05/17/20 05/18/20 06:59 06:59 06:59 Intake Total 440 1528 980 Output Total 950 1325 950 Balance -510 203 30 Result Diagrams: 05/16/20 06:14 05/16/20 06:14 Phys Exam - Physical Examination Constitutional: NAD HEENT: PERRLA Neck: no nodes Respiratory: no wheezing, no rales, no rhonchi, clear to auscultation bilateral Cardiovascular: RRR, no significant murmur, no rub Gastrointestinal: soft, non-tender, no distention Musculoskeletal: no edema, pulses present Neurological: non-focal, normal sensation, moves all 4 limbs Psychiatric: normal affect, A&O x 3 Skin: no rash, normal turgor, cap refill <2 seconds Dx/Plan (1) Bladder cancer Status: Acute (2) HLD (hyperlipidemia) Code(s): E78.5 - HYPERLIPIDEMIA, UNSPECIFIED Status: Chronic (3) HTN (hypertension) Code(s): I10 - ESSENTIAL (PRIMARY) HYPERTENSION Status: Chronic (4) Indwelling Hoyos catheter present Code(s): Z97.8 - PRESENCE OF OTHER SPECIFIED DEVICES Status: Chronic (5) Malnutrition Code(s): E46 - UNSPECIFIED PROTEIN-CALORIE MALNUTRITION Status: Chronic Qualifiers: Malnutrition type: unspecified type Qualified Code(s): E46 - Unspecified protein-calorie malnutrition - Plan Plan: ##Sepsis 2/2 Pseudomonal UTI -abx: vanc and cefepime started initially. vanc dc'd and continued on cefepime. -Bl cx NGTD @ 48 hrs -Hx of MDR UTI -Sensitive to amikacin, cefepime, ceftazidime, meropenem, zosyn, tobramycin. Resistant to cipro, gent, levaquin -plan to complete 7 days of IV abx total ##Bladder cancer -being treated by Dr. Lacefield for the past 6 months -s/p intravesicular bcg tx -recs DC with abx x 7 days ##HTN - home meds ##HLD Previously treated with statin but reports he was told to stop taking this - held statin ##Moderate malnutrition - ensure supplementation, regular diet ##Hyponatremia, stable -134 Dispo: plan to complete 7 days total of IV antibiotics today. d/c likely today. discharge planning has been completed. Addendum - Attending - Attending Attestation Date/Time: 05/18/20 4416 I personally evaluated the patient and discussed the management with Dr. Leonard. I agree with the History, Examination, Assessment and Plan documented above with any addition or exceptions noted below.
[2020-05-18] MEDS: Amlodipine 10 MG TAB PO SCH (08:30)
[2020-05-18] MEDS: Enoxaparin Sodium 40 MG/0.4 ML SYRINGE SC SCH (08:30)
[2020-05-18 09:48] VITALS: BP 159/87; TEMP 98.2
--- NOTE | 2020-05-19 04:54 | DIS ---
DATE OF ADMISSION: 05/13/2020 DATE OF DISCHARGE: 05/18/2020 RESIDENT: Amparo Leonard DO ADMITTING ATTENDING: Efrem Severino MD DISCHARGE ATTENDING: Parmjit Sahu MD CONSULT: Kyle Castro MD of Urology. PROCEDURES: None. PRIMARY DIAGNOSIS: Sepsis secondary to urinary tract infection. SECONDARY DIAGNOSES: Recurrent urinary tract infections, bladder cancer, hypertension, hyperlipidemia, and malnutrition. DISCHARGE MEDICATIONS: 1. Aspirin 81. 2. Amlodipine 10. 3. Lipitor 10. 4. Zofran 4 mg. Discontinued medications, none. HISTORY OF PRESENT ILLNESS/HOSPITAL COURSE: This is an 84-year-old male with a past medical history of bladder cancer, hypertension, hyperlipidemia, who was a transfer from [facility] for sepsis secondary to UTI. He stated that he was getting BCG treatment for his bladder cancer earlier that day and developed chills and a fever of 102. His workup was significant for a urinalysis positive for nitrites, bacteria, and leukocytes. He has a chronic indwelling Hoyos catheter and has several infections and positive urine cultures in the past. He stated that he last had a UTI three weeks ago. He had planned to follow up with Dr. Gunter after his last UTI. He denied any dysuria, malodorous urine, pain associated with the Hoyos or discharge from his Hoyos. He did endorse some hematuria. His stay here was mostly unremarkable. In terms of his sepsis, he was initially started on vancomycin and cefepime and then continued on cefepime for a total of seven days. His urine culture had grown Pseudomonas, but his blood cultures had been negative Dr. Castro of Urology was consulted and followed him throughout his stay. He had recommended outpatient follow up with him in clinic after discharge. Pt completed 7 days total of IV antibiotics with no complications. DISPOSITION: Stable. DISCHARGE INSTRUCTIONS: 1. Location: Home. 2. Diet: Regular. 3. Activity: As tolerated. 4. Followup: Within one week with PCP Dr. Cast. F/u with Dr. Castro of Urology. F/u with Dr. Gunter of Infectious Disease. Job ID: [id number] [facility]
== END 2020-05-18 17:10 | disposition home or self-care (01) | DRG 698 ==
LOC: ERS 21:30 → ONC 05-13 00:39
PROVIDERS: ADMIT Emergency Medicine; ATTEND Emergency Medicine
DX: T83.511A Infection and inflammatory reaction due to indwelling urethral catheter, initial encounter (principal); A41.59 Other Gram-negative sepsis; E87.1 Hypo-osmolality and hyponatremia; E44.0 Moderate protein-calorie malnutrition; Z68.1 Body mass index [BMI] 19.9 or less, adult; Z16.24 Resistance to multiple antibiotics; Z20.828 Contact with and (suspected) exposure to other viral communicable diseases; N39.0 Urinary tract infection, site not specified; Y84.6 Urinary catheterization as the cause of abnormal reaction of the patient, or of later complication, without mention of misadventure at the time of the procedure; I10 Essential (primary) hypertension; E78.5 Hyperlipidemia, unspecified; C67.9 Malignant neoplasm of bladder, unspecified; N40.1 Benign prostatic hyperplasia with lower urinary tract symptoms; R33.8 Other retention of urine; Z79.899 Other long term (current) drug therapy; Z79.82 Long term (current) use of aspirin; Z87.891 Personal history of nicotine dependence; Z87.440 Personal history of urinary (tract) infections
CPT/HCPCS: 36415; 80048; 80202; 82010; 85025; 87205; 87635; 99285; J0692; J1650; J3370; J3490; J7050; U0003

== ENCOUNTER 2020-09-02 07:22 | Outpatient (CLI) | payer MEDICARE, OTHER ==
[2020-07-23 11:06] LABS: INR-International Normal Ratio 1.1; PTT 27.4 sec (22.0-33.0); Prothrombin Time 11.3 sec (9.5-12.1)
[2020-07-24 16:11] LABS: SARS-CoV-2 MS2 Positive; SARS-CoV-2 N Gene Positive; SARS-CoV-2 S Gene Positive; SARS-CoV-2 by NAA DETECTED (NotDetected); SARS-CoV-2 orf1ab Positive
== END 2020-09-02 07:23 | disposition home or self-care (01) ==
LOC: LABBT 07:22
PROVIDERS: ATTEND Urology
DX: U07.1 COVID-19 (principal); Z01.812 Encounter for preprocedural laboratory examination; C67.9 Malignant neoplasm of bladder, unspecified
CPT/HCPCS: 85610; 85730; 86850; 86900; 86901; 86920; U0003; 87635

== ENCOUNTER 2020-09-02 14:00 | Inpatient (IN) | payer MEDICARE, OTHER ==
[2020-10-07 16:15] LABS: Hemoglobin 11.1 g/dL (13.5-17.5); Mean Corpuscular HGB CONC 31.3 g/dL (32.0-36.0); Mean Corpuscular Hemoglobin 30.2 pg (27.0-33.0); Mean Corpuscular Volume 96.7 fl (81.2-95.1); Mean Platelet Volume 9.3 fl (7.4-10.4); Platelet Count 207 10x3/uL (150-450); RBC Distribution Width 15.8 % (11.5-14.5); Red Blood Cell (RBC) Count 3.67 10x6/uL (4.32-5.72); White Blood Cell (WBC) Count 4.9 10x3/uL (3.5-10.5)
[2020-10-07 16:22] LABS: Anion Gap 12 mmol/L (10-20); BUN (Urea Nitrogen) 16 mg/dL (8.4-25.7); Calc. Creatinine Clearance 0 mL/min (70-130); Calcium 9.2 mg/dL (7.8-10.44); Carbon Dioxide 26 mmol/L (23-31); Chloride 104 mmol/L (98-107); Glucose 90 mg/dL (83-110); Potassium 4.5 mmol/L (3.5-5.1); Sodium 137 mmol/L (136-145)
[2020-10-07 16:48] LABS: PTT 27.1 sec (22.0-33.0)
[2020-10-19] MEDS ORDERED: cefOXitin Sodium/Dextrose 2 GM/50 ML BAG ONE (08:59)
[2020-10-19] MEDS ORDERED: Fentanyl 100 MCG/2 ML VIAL ONE ×3 (09:01→16:54)
[2020-10-19] MEDS ORDERED: Acetaminophen 500 MG TAB PO PRN (09:41)
[2020-10-19] MEDS ORDERED: Naloxone HCl 0.4 mg/ml Vial IV PRN (09:45)
[2020-10-19] MEDS ORDERED: Hydrocerin (Eucerin) Cream 120 gm Jar TOP PRN (09:45)
[2020-10-19] MEDS ORDERED: Naloxone HCl 0.4 mg/ml Vial IVP PRN (09:45)
[2020-10-19] MEDS ORDERED: Promethazine HCl 25 MG/ML VIAL IM PRN ×2 (09:45→13:56)
[2020-10-19] MEDS ORDERED: Bupivacaine 0.25% 10 ML VIAL EPIDURAL PRN (09:45)
[2020-10-19] MEDS ORDERED: diphenhydrAMINE 25 MG CAP PO PRN (09:45)
[2020-10-19] MEDS ORDERED: Promethazine HCl 25 MG SUPP PR PRN (09:45)
[2020-10-19] MEDS ORDERED: Zolpidem Tartrate 5 MG TAB PO PRN (09:45)
[2020-10-19] MEDS ORDERED: traMADol HCl 50 MG TAB PO PRN ×2 (09:45)
[2020-10-19] MEDS ORDERED: diphenhydrAMINE 50 MG/ML VIAL IM PRN (09:45)
[2020-10-19] MEDS ORDERED: diphenhydrAMINE 50 MG/ML VIAL IVP PRN (09:45)
[2020-10-19] MEDS ORDERED: HYDROcodone/Acetaminophen 5/325 mg Tablet PO PRN ×2 (09:45)
[2020-10-19] MEDS ORDERED: XYLOCAINE 2%-EPI 1:100,000 20 ML VIAL ONE (10:00)
[2020-10-19] MEDS ORDERED: Bupivacaine 0.25% HCL 30 ML VIAL ONE ×2 (10:00→10:33)
[2020-10-19] MEDS ORDERED: Sodium Chloride 0.9% 10 ML ONE ×2 (10:02→18:50)
[2020-10-19] MEDS ORDERED: Fentanyl 250 MCG/5 ML VIAL ONE (10:03)
[2020-10-19] MEDS ORDERED: Glycopyrrolate 0.2 MG/ML 5 ML SYRINGE ONE (10:35)
[2020-10-19] MEDS ORDERED: Dexamethasone 20 MG/5 ML VIAL ONE (10:35)
[2020-10-19] MEDS ORDERED: PROPOFOL 200 MG/20 ML VIAL ONE (10:35)
[2020-10-19] MEDS ORDERED: Ondansetron PF 4 MG/2 ML Vial ONE (10:35)
[2020-10-19] MEDS ORDERED: ePHEDrine 50 MG/ML VIAL ONE (10:35)
[2020-10-19] MEDS ORDERED: Lidocaine 1.5% w/Epi 1:200K 30 ML VIAL (Epid Use) ONE (10:35)
[2020-10-19] MEDS ORDERED: Rocuronium Bromide 10 MG/ML (10ML VIAL) ONE (10:35)
[2020-10-19] MEDS ORDERED: Phenylephrine 10 MG/ML VIAL ONE (11:56)
[2020-10-19] MEDS ORDERED: hydrALAZINE 20 MG/ML VIAL SLOW IVP PRN (13:44)
[2020-10-19] MEDS ORDERED: Morphine Sulfate 2 MG/ML SYRINGE SLOW IVP PRN (13:56)
[2020-10-19] MEDS ORDERED: Promethazine HCl 25 MG/ML VIAL SLOW IVP PRN (13:56)
[2020-10-19] MEDS ORDERED: PACU-Morphine 4MG/ML VIAL SLOW IVP PRN (13:56)
[2020-10-19] MEDS ORDERED: Ondansetron HCl/PF 4 MG/2 ML Vial IVP PRN (13:56)
[2020-10-19] MEDS ORDERED: Furosemide 40 MG/4 ML VIAL ONE (14:28)
[2020-10-19 15:14] LABS: #Basophils 0.1 thou/uL (0.0-0.2); #Lymphocytes 1.2 thou/uL (1.20-3.40); #Monocytes 0.5 thou/uL (0.11-0.59); #Neutrophils 10.4 thou/uL (1.40-6.50); %Basophils 0.7 % (0.0-1.0); %Eosinophils 0.2 % (0.0-10.0); %Lymphocytes 9.7 % (21.0-51.0); %Monocytes 4.1 % (0.0-10.0); %Neutrophils 85.3 % (42.0-75.0); Hemoglobin 9.1 g/dL (14.0-18.0); Mean Corpuscular HGB CONC 31.8 g/dL (32.0-36.0); Mean Corpuscular Hemoglobin 31.8 pg (27.0-31.0); Mean Platelet Volume 6.8 fL (7.4-10.4); Platelet Count 203 thou/uL (130-400); RBC Distribution Width 13.8 % (11.5-14.5); Red Blood Cell (RBC) Count 2.85 mill/uL (4.70-6.10); White Blood Cell (WBC) Count 12.2 thou/uL (4.8-10.8)
[2020-10-19 15:32] LABS: Anion Gap 11 mmol/L (10-20); BUN (Urea Nitrogen) 14 mg/dL (8.4-25.7); Calc. Creatinine Clearance 0 mL/min (70-130); Carbon Dioxide 25 mmol/L (23-31); Chloride 106 mmol/L (98-107); Glucose 160 mg/dL (83-110); Potassium 3.8 mmol/L (3.5-5.1); Sodium 138 mmol/L (136-145)
--- NOTE | 2020-10-19 16:57 | RAD ---
EXAM: Single view of the chest HISTORY: Central line placement COMPARISON: 07/15/2020 FINDINGS: Single view of the chest shows a normal sized cardiomediastinal silhouette. There is a rig ht subclavian central venous catheter which extends up the neck. The tip is uncertain position and not definitely within the internal jugular vein. No pneumothorax. There is no evidence of consolidati on, mass, or pleural effusion. Free air beneath the diaphragm may be related recent surgery. IMPRESSION: 1. Right subclavian intravenous catheter has an unclear position. Correlate with ABG to ensure that t his is venous. 2. There is free air beneath the diaphragm which may be from recent surgery.
--- NOTE | 2020-10-19 17:00 | RAD ---
EXAM: Single view of the abdomen HISTORY: Stent placement COMPARISON: None FINDINGS: Single view of the abdomen shows a nonspecific, nonobstructive bowel gas pattern. A drain i s seen in the pelvis. Midline skin kiara are seen. Bilateral ureteral stents are seen which extend out of the right abdomen and likely extend out a diverting urostomy. No suspicious calcificati ons are seen. The bones are unremarkable. IMPRESSION: Appropriately placed ureteral stents as above
[2020-10-19] MEDS ORDERED: cefTRIAXone\\ROCEPHIN 1 GM VIAL ONE (18:41)
[2020-10-19] MEDS ORDERED: Sodium Chloride 0.9% 100 ML ONE (18:41)
[2020-10-19] MEDS: cefTRIAXone\\ROCEPHIN 1 GM in Sodium Chloride 0.9% 100 ML IVPB SCH (18:55)
[2020-10-19] MEDS ORDERED: D5 1/2 NS w/20 mEq KCL 1,000 ML ONE (19:51)
[2020-10-19] MEDS: Docusate 100 MG CAP PO SCH (21:28)
[2020-10-19] MEDS: Famotidine/PF 20 mg/2ml Vial SLOW IVP SCH (21:28)
[2020-10-19] MEDS: D5 1/2 NS w/20 mEq KCL 1,000 ML IV SCH (23:17)
[2020-10-20] MEDS: D5 1/2 NS w/20 mEq KCL 1,000 ML IV SCH ×3 (00:19→20:41)
[2020-10-20 05:08] LABS: #Monocytes 1.2 thou/uL (0.11-0.59); #Neutrophils 9.2 thou/uL (1.40-6.50); %Basophils 0.4 % (0.0-1.0); %Eosinophils 0.1 % (0.0-10.0); %Lymphocytes 15.8 % (21.0-51.0); %Monocytes 9.6 % (0.0-10.0); %Neutrophils 74.1 % (42.0-75.0); Hemoglobin 7.6 g/dL (14.0-18.0); Mean Corpuscular HGB CONC 32.2 g/dL (32.0-36.0); Mean Corpuscular Hemoglobin 31.5 pg (27.0-31.0); Mean Corpuscular Volume 97.8 fL (78.0-98.0); Platelet Count 183 thou/uL (130-400); RBC Distribution Width 13.6 % (11.5-14.5); Red Blood Cell (RBC) Count 2.42 mill/uL (4.70-6.10); White Blood Cell (WBC) Count 12.4 thou/uL (4.8-10.8)
[2020-10-20 05:41] LABS: Anion Gap 8 mmol/L (10-20); BUN (Urea Nitrogen) 23 mg/dL (8.4-25.7); Calc. Creatinine Clearance 27 mL/min (70-130); Calcium 7.7 mg/dL (7.8-10.44); Carbon Dioxide 25 mmol/L (23-31); Chloride 105 mmol/L (98-107); Glucose 170 mg/dL (83-110); Sodium 133 mmol/L (136-145)
[2020-10-20] MEDS ORDERED: Furosemide 20 MG/2 ML VIAL SLOW IVP SCH (07:00)
[2020-10-20] MEDS ORDERED: Calcium Gluconate 4.6 MEQ in Sodium Chloride 0.9% 100 ML IVPB SCH (08:22)
[2020-10-20] MEDS: Docusate 100 MG CAP PO SCH ×2 (08:40→20:42)
[2020-10-20] MEDS: Famotidine/PF 20 mg/2ml Vial SLOW IVP SCH (08:40)
[2020-10-20] MEDS: Aspirin 81 mg Enteric Coated Tablet PO SCH (08:40)
--- NOTE | 2020-10-20 08:43 | OP ---
DATE OF PROCEDURE: 10/19/2020 PREOPERATIVE DIAGNOSIS: Bladder cancer. POSTOPERATIVE DIAGNOSIS: Bladder cancer. PROCEDURES PERFORMED: Radical cystectomy with bilateral pelvic lymph node dissection, radical prostatectomy, ileal conduit diversion. ANESTHESIA: General, epidural. ESTIMATED BLOOD LOSS: 500 mL. SPECIMENS: Bladder and prostate, right and left pelvic lymph nodes, right and left distal ureter frozen section. DESCRIPTION OF PROCEDURE: After informed consent, the patient was taken to the operating room, transferred to the table under his own power. Anesthesia was established. A central line was placed by Dr. Rivera. A time-out was performed, showing the correct patient, site, and procedure. Preoperative antibiotics were administered. He was prepped and draped in the supine position. I began by placing an 18-L[place]ian Hoyos catheter with 10 mL instilled in the balloon. I made a midline incision from the pubic symphysis to above the umbilicus. This was carried down through his scant subcutaneous fat to fascia. Fascia was carefully entered in the midline. The abdomen was entered and the bladder mobilized. I noted that the bladder was somewhat affixed to the right pelvic sidewall. However, there were no abnormal lymph nodes palpable. This may simply be from his chronic infections. The right ureter was dissected free and traced down towards the right UVJ. The ureter was secured with clips and transected. The distal aspect of the ureter was sent off for frozen section, which returned negative. Similar process was repeated on the left side. I was then able to develop the bladder pedicles and take these down with the LigaSure device. Care was taken to avoid injury to the rectum facilitated by incising the peritoneum between the bladder and rectum with electrocautery. The endopelvic fascia was bluntly entered on both sides of the prostate and the planes on either side of the prostate developed down to the urethra. The patient had significant scarring and adhesions of the anterior aspect of the bladder. This was carefully taken down and the DVC controlled with the LigaSure device. The anterior aspect of the urethra was transected with a 10 blade and the catheter pulled up into the operative field before being transected to allow complete retraction into the field. Posterior urethra was then transected and Denonvillier's opened. The posterior plane behind the prostate was then bluntly developed and connected to the previously formed plane posterior to the bladder upon mobilization. The prostate pedicles were taken down with the LigaSure device and at this point, the specimen was complete. It was passed off. The patient did have a mild amount of bleeding from the urethra, which was controlled with Vicryl suture on UR6 needle. He had minimal oozing of the pelvis, which was then packed with a lap. The terminal ileum was identified and a segment about 10 to 12 cm in length, 15 cm from the ileocecal valve was selected. Appropriate vasculature in the mesentery was identified to supply the conduit and then the conduit removed from continuity with the bowel with kiara. The ileoileostomy was then performed using the MYLES stapler as well. Resultant mesenteric defect was closed in an interrupted fashion with silk suture. The left ureter was then anastomosed to the conduit after passing it underneath the sigmoid colon. After securing the ends of the anastomosis, a stent was passed into the left renal pelvis and secured through the conduit. The anastomosis was then completed in a running fashion with 4-0 Vicryl suture. A similar process was repeated on the right side. An appropriate location for the stoma was identified in the right lower quadrant, which should allow the patient to wear his pants above the bag. The stoma was brought out lateral to the rectus abdominis. This was secured with quadrant 0 Vicryl sutures. The stoma was then matured with 2-0 Vicryl suture. The lap in the pelvis was then removed, noting minimal oozing, but no active bleeding. Meredith was deployed after irrigating the belly. The drain was brought out through the left lower quadrant. Fascia was closed in a running fashion with 0 PDS suture. Skin was closed with skin kiara. The urostomy device was applied and connected to bag drainage. An island dressing was placed over the midline incision and a drain sponge over the drain site. He was then awoken from anesthesia, transferred back to his hospital bed and taken to PACU in stable condition, where he will be admitted to my service. Job ID: [id number]
--- NOTE | 2020-10-20 08:47 | PRG ---
DATE OF SERVICE: 10/20/2020 SUBJECTIVE: Minimal discomfort this morning, epidural seems to be working well. He denies fevers, nausea, chest pains, or difficulty breathing. OBJECTIVE: VITAL SIGNS: Afebrile, mildly hypertensive, heart rate regular. Urine output 175 overnight. MELY 165. LUNGS: Unlabored breathing. Symmetric chest expansion. HEART: Regular rate and rhythm. ABDOMEN: Soft, nondistended. Appropriately tender. Dressing in good position, clean and not soiled. Urostomy, healthy. Both stents in good position. Urine dripping from each stent, albeit slowly. EXTREMITIES: No peripheral edema or cyanosis. LABORATORY DATA: Reviewed. LABORATORY DATA: White count 12, hemoglobin 7.6. Sodium 133, creatinine 1.72, calcium 7.7. IMAGING: KUB reviewed. Stents in good position. ASSESSMENT AND PLAN: 1. Postoperative day #1, radical cystoprostatectomy with ileal conduit and pelvic lymph node dissection. 2. Routine postop care: Epidural managed by Anesthesia Pain Service, incentive spirometry, SCDs, holding Lovenox until at least tomorrow, out of bed to chair today, full liquid diet. 3. Consult PT, case management, wound care for ostomy education. 4. Hyponatremia. Observation for now, may need to transition to normal saline IV fluids. 5. Hypocalcemia, calcium gluconate ordered. 6. Acute kidney injury. Continue IV fluids, 20 mg of Lasix given this morning. Urine output seems to have picked up already. We will monitor this through the morning. 7. Acute blood loss anemia. Recheck H and H at noon. I suspect a component of this is dilution given the fluids. He received intraoperative and bolus in PACU yesterday and limited urine output afterwards. Job ID: [id number]
[2020-10-20] MEDS ORDERED: Enoxaparin Sodium 40 MG/0.4 ML SYRINGE SC SCH (09:00)
[2020-10-20] MEDS ORDERED: Fluconazole In NaCl,Iso-Osm 100 MG in Premix Bag 1 BAG IVPB SCH (09:00)
[2020-10-20] MEDS: Fluconazole In NaCl,Iso-Osm 100 MG, Admixture Fee 1 EACH in Premix Bag 1 BAG IVPB SCH (10:29)
[2020-10-20] MEDS: fentaNYL Citrate/PF 500 MCG, Bupivacaine 10 ML in Sodium Chloride 0.9% 80 ML EPIDURAL SCH (10:42)
[2020-10-20 12:00] LABS: Hemoglobin 7.3 g/dL (14.0-18.0); Platelet Count 163 thou/uL (130-400)
[2020-10-20] MEDS: cefTRIAXone\\ROCEPHIN 1 GM in Sodium Chloride 0.9% 100 ML IVPB SCH (13:30)
[2020-10-20] MEDS: Ondansetron PF 4 MG/2 ML Vial IVP PRN (15:36)
[2020-10-20] MEDS ORDERED: Furosemide 40 MG/4 ML VIAL SLOW IVP SCH (17:00)
[2020-10-21] MEDS: fentaNYL Citrate/PF 500 MCG, Bupivacaine 10 ML in Sodium Chloride 0.9% 80 ML EPIDURAL SCH ×2 (04:27→20:29)
[2020-10-21 05:20] LABS: #Eosinphils 0.4 thou/uL (0.0-0.7); #Lymphocytes 1.9 thou/uL (1.20-3.40); #Monocytes 0.7 thou/uL (0.11-0.59); #Neutrophils 6.3 thou/uL (1.40-6.50); %Basophils 0.1 % (0.0-1.0); %Eosinophils 4.8 % (0.0-10.0); %Lymphocytes 20.6 % (21.0-51.0); %Monocytes 7.2 % (0.0-10.0); %Neutrophils 67.3 % (42.0-75.0); Mean Corpuscular HGB CONC 31.2 g/dL (32.0-36.0); Mean Corpuscular Hemoglobin 30.5 pg (27.0-31.0); Mean Corpuscular Volume 97.6 fL (78.0-98.0); Mean Platelet Volume 7.2 fL (7.4-10.4); Platelet Count 160 thou/uL (130-400); RBC Distribution Width 13.4 % (11.5-14.5); Red Blood Cell (RBC) Count 1.97 mill/uL (4.70-6.10); White Blood Cell (WBC) Count 9.3 thou/uL (4.8-10.8)
[2020-10-21 05:40] LABS: Anion Gap 7 mmol/L (10-20); BUN (Urea Nitrogen) 29 mg/dL (8.4-25.7); Calc. Creatinine Clearance 26 mL/min (70-130); Calcium 7.6 mg/dL (7.8-10.44); Carbon Dioxide 24 mmol/L (23-31); Chloride 103 mmol/L (98-107); Glucose 109 mg/dL (83-110); Potassium 5.1 mmol/L (3.5-5.1); Sodium 129 mmol/L (136-145)
[2020-10-21] MEDS ORDERED: Furosemide 20 MG/2 ML VIAL IVP SCH (07:15)
[2020-10-21] MEDS: D5 1/2 NS w/20 mEq KCL 1,000 ML IV SCH (07:25)
[2020-10-21] MEDS: Docusate 100 MG CAP PO SCH ×2 (08:22→20:22)
[2020-10-21] MEDS: Aspirin 81 mg Enteric Coated Tablet PO SCH (08:22)
[2020-10-21] MEDS: Fluconazole In NaCl,Iso-Osm 100 MG, Admixture Fee 1 EACH in Premix Bag 1 BAG IVPB SCH (08:22)
[2020-10-21] MEDS: Famotidine/PF 20 mg/2ml Vial SLOW IVP SCH (08:23)
[2020-10-21] MEDS: Sodium Chloride 0.9% 1,000 ML IV SCH ×2 (08:23→16:47)
[2020-10-21] MEDS ORDERED: Enoxaparin Sodium 40 MG/0.4 ML SYRINGE SC SCH (09:00)
[2020-10-21] MEDS: cefTRIAXone\\ROCEPHIN 1 GM in Sodium Chloride 0.9% 100 ML IVPB SCH (13:23)
[2020-10-21] MEDS ORDERED: Calcium Gluconate 4.6 MEQ in Sodium Chloride 0.9% 100 ML IVPB SCH (15:30)
[2020-10-21 17:07] LABS: Hemoglobin 8.5 g/dL (14.0-18.0)
[2020-10-22] MEDS: Sodium Chloride 0.9% 1,000 ML IV SCH ×3 (03:30→17:02)
[2020-10-22 04:22] LABS: #Eosinphils 0.6 thou/uL (0.0-0.7); #Lymphocytes 1.9 thou/uL (1.20-3.40); #Monocytes 0.8 thou/uL (0.11-0.59); #Neutrophils 6.6 thou/uL (1.40-6.50); %Basophils 0.2 % (0.0-1.0); %Eosinophils 6.2 % (0.0-10.0); %Lymphocytes 18.7 % (21.0-51.0); %Monocytes 8.1 % (0.0-10.0); %Neutrophils 66.8 % (42.0-75.0); Mean Corpuscular Hemoglobin 32.5 pg (27.0-31.0); Mean Corpuscular Volume 95.6 fL (78.0-98.0); Mean Platelet Volume 7.1 fL (7.4-10.4); Platelet Count 150 thou/uL (130-400); RBC Distribution Width 13.9 % (11.5-14.5); Red Blood Cell (RBC) Count 2.46 mill/uL (4.70-6.10); White Blood Cell (WBC) Count 9.9 thou/uL (4.8-10.8)
[2020-10-22 04:39] LABS: Anion Gap 9 mmol/L (10-20); BUN (Urea Nitrogen) 22 mg/dL (8.4-25.7); Calc. Creatinine Clearance 45 mL/min (70-130); Calcium 7.9 mg/dL (7.8-10.44); Carbon Dioxide 23 mmol/L (23-31); Chloride 105 mmol/L (98-107); Glucose 86 mg/dL (83-110); Potassium 4.3 mmol/L (3.5-5.1); Sodium 133 mmol/L (136-145)
--- NOTE | 2020-10-22 05:59 | PRG ---
DATE OF SERVICE: 10/21/2020 SUBJECTIVE: No acute events overnight. The patient tells me that he feels well overall and has better appetite than yesterday. His pain is well controlled with his epidural. He denies chest pains, difficulty breathing, nausea, or fevers. OBJECTIVE: VITAL SIGNS: Stable, afebrile. Urine output 975 overnight. Drain output only 120, serosanguineous. CHEST: Unlabored breathing. Symmetric chest expansion. HEART: Regular rate and rhythm. ABDOMEN: Soft, nondistended. Appropriately tender. Dressing intact. GENITOURINARY: Urostomy healthy with stents in place dripping clear urine. EXTREMITIES: No peripheral edema. LABORATORY DATA: Reviewed. Hemoglobin trended down to 6.0. Creatinine remains elevated at 1.78. Calcium remains low at 7.6. Sodium has dropped slightly to 129. ASSESSMENT AND PLAN: 1. Postop day #2, radical cystoprostatectomy with ileal conduit and bilateral pelvic lymph node dissection. 2. Routine postop care, out of bed, PT, wound care, DVT and GI prophylaxis, SCDs, incentive spirometry. 3. Continue epidural through tomorrow or possibly Sunday. 4. Acute blood loss anemia. Transfuse 2 units. I still suspect that dilution plays a role here. I expect to see his blood count improve fairly dramatically as we transfuse him and he continues to increase urine output. 5. Hyponatremia, switching to normal saline infusion. 6. Hypocalcemia, administering calcium gluconate again. Job ID: [id number]
--- NOTE | 2020-10-22 08:56 | PRG ---
DATE OF SERVICE: 10/22/2020 SUBJECTIVE: Doing well overnight. No significant discomfort. He has been eating a small amount of his meals. He denies nausea or vomiting. He has been passing gas over the past 12 to 18 hours. No bowel movements. He denies headaches, chest pain, or difficulty breathing. OBJECTIVE: VITAL SIGNS AND GENERAL: Afebrile. Vitals are stable. Drain output 105, serosanguineous. Urine output 2500. He remains 1 to 2 L fluid positive. However, no acute distress. CHEST: Unlabored breathing. Symmetric chest expansion. HEART: Regular rate and rhythm. ABDOMEN: Soft, appropriately tender, nondistended. Stoma healthy. Stents in good position. Urine clear. No flank tenderness. EXTREMITIES: No peripheral edema. LABORATORY DATA: Reviewed. He did respond well to his 2 units yesterday with hemoglobin rising from 6.0 to 8.5 in the afternoon, 8.0 this morning, likely dilutional. Neutrophil percent 66.8. Creatinine has improved and is 1.05 today. Calcium normal. Sodium improved to 133 from 129. ASSESSMENT AND PLAN: Postop day 3, radical cystoprostatectomy with ileal conduit and bilateral pelvic lymph node dissection. Routine postop care, pain control with epidural for another 24 hours likely, continue diet, continue physical therapy, out of bed, ambulating into chair, incentive spirometry, deep venous thrombosis and gastrointestinal prophylaxis. Holding Lovenox tomorrow morning to facilitate epidural removal. Hyponatremia, improving with normal saline, continue. Fluid management: Reducing IV fluids to 50 mL/h. Continue 20 mg Lasix each morning. Acute blood loss anemia, resolved with 2 units yesterday. Repeat hemoglobin and hematocrit this afternoon to ensure that this does not continue to trend down. If he continues on his current trajectory, I expect he will discharge on Sunday or Sunday. Job ID: [id number]
[2020-10-22] MEDS: Docusate 100 MG CAP PO SCH ×2 (09:35→19:52)
[2020-10-22] MEDS: Furosemide 20 MG/2 ML VIAL SLOW IVP SCH (09:35)
[2020-10-22] MEDS: Famotidine/PF 20 mg/2ml Vial SLOW IVP SCH (09:35)
[2020-10-22] MEDS: Aspirin 81 mg Enteric Coated Tablet PO SCH (09:35)
[2020-10-22] MEDS ORDERED: HYDROcodone/Acetaminophen 10/325 mg Tablet PO PRN ×2 (10:23)
[2020-10-22] MEDS: Fluconazole In NaCl,Iso-Osm 100 MG, Admixture Fee 1 EACH in Premix Bag 1 BAG IVPB SCH (11:52)
[2020-10-22 13:59] LABS: Hemoglobin 8.9 g/dL (14.0-18.0)
[2020-10-22] MEDS: cefTRIAXone\\ROCEPHIN 1 GM in Sodium Chloride 0.9% 100 ML IVPB SCH (14:45)
[2020-10-22] MEDS: Ibuprofen 600 MG TAB PO SCH ×2 (16:53→19:52)
[2020-10-22] MEDS: Acetaminophen 500 MG TAB PO SCH ×2 (16:55→19:53)
[2020-10-22 17:53] VITALS: BMI 18.9
[2020-10-22] MEDS ORDERED: Enoxaparin Sodium 40 MG/0.4 ML SYRINGE SC SCH (21:00)
[2020-10-23] MEDS: Acetaminophen 500 MG TAB PO SCH ×4 (03:48→20:06)
[2020-10-23 05:37] LABS: #Eosinphils 0.7 thou/uL (0.0-0.7); #Lymphocytes 1.4 thou/uL (1.20-3.40); #Monocytes 0.6 thou/uL (0.11-0.59); #Neutrophils 4.6 thou/uL (1.40-6.50); %Eosinophils 9.5 % (0.0-10.0); %Lymphocytes 19.4 % (21.0-51.0); %Monocytes 8.5 % (0.0-10.0); %Neutrophils 62.5 % (42.0-75.0); Hemoglobin 7.4 g/dL (14.0-18.0); Mean Corpuscular HGB CONC 33.8 g/dL (32.0-36.0); Mean Corpuscular Hemoglobin 31.8 pg (27.0-31.0); Platelet Count 162 thou/uL (130-400); RBC Distribution Width 13.6 % (11.5-14.5); Red Blood Cell (RBC) Count 2.33 mill/uL (4.70-6.10); White Blood Cell (WBC) Count 7.3 thou/uL (4.8-10.8)
[2020-10-23 05:59] LABS: Anion Gap 11 mmol/L (10-20); BUN (Urea Nitrogen) 23 mg/dL (8.4-25.7); Calc. Creatinine Clearance 46 mL/min (70-130); Calcium 8.4 mg/dL (7.8-10.44); Carbon Dioxide 25 mmol/L (23-31); Chloride 105 mmol/L (98-107); Glucose 84 mg/dL (83-110); Potassium 3.7 mmol/L (3.5-5.1); Sodium 137 mmol/L (136-145)
[2020-10-23] MEDS ORDERED: Bisacodyl 10 MG SUPP PR PRN (09:00)
[2020-10-23] MEDS: Famotidine/PF 20 mg/2ml Vial SLOW IVP SCH (09:57)
[2020-10-23] MEDS: Enoxaparin Sodium 40 MG/0.4 ML SYRINGE SC SCH (09:57)
[2020-10-23] MEDS: Furosemide 20 MG/2 ML VIAL SLOW IVP SCH (09:57)
[2020-10-23] MEDS: Ibuprofen 600 MG TAB PO SCH ×3 (09:58→20:06)
[2020-10-23] MEDS: Docusate 100 MG CAP PO SCH ×2 (09:58→20:06)
[2020-10-23] MEDS: Aspirin 81 mg Enteric Coated Tablet PO SCH (09:58)
[2020-10-23] MEDS: Amlodipine 10 MG TAB PO SCH (09:59)
--- NOTE | 2020-10-23 12:05 | PRG ---
DATE OF SERVICE: 10/23/2020 SUBJECTIVE: patient denies nausea, vomiting, fever, significant flank pain. Family at bedside. He relates his blood pressure has been high. + gas, no bm, denies headache, chest pain, shortness of breath. OBJECTIVE: VITAL SIGNS: Temperature 98.4, pulse 70, respiratory rate 18, oxygen saturation 97%, and blood pressure trends reviewed, demonstrating highest systolic 187, highest diastolic 71. I's and O's 2430 in and 3585 out. MELY output 110 mL serosanguineous, conduit with 3075+ of clear dilute urine. GENERAL: The patient is in no acute distress. HEART: Regular rate. LUNGS: Clear. ABDOMEN: Soft, nontender. Incision is clean, dry, and intact. Ileal conduit is pink and viable. No rigidity. No rebound. Bowel sounds are present. EXTREMITIES: No cyanosis, clubbing, or edema. No calf tenderness appreciated. PERTINENT LABORATORY DATA: White count 7, hemoglobin 7.4. He did receive 2 units of packed RBCs as he had H and H dropped to 6.0, appropriate increase, however, H and H have dropped again. Platelet 162. Coags are within normal limits. BMP profile within normal limits. IMPRESSION AND PLAN: 1. Mr. Call is a pleasant 85-year-old male, postop day #4, status post radical cystoprostatectomy, ileal conduit, bilateral pelvic lymph node dissection. 2. Postop anemia, status post 2 units. monitor H and H, transfuse as necessary. currently on Lovenox, aspirin, NSAIDs.will consider holding some of the anticoagulation if needed; 3. Hypertension Recommend hospitalist consult for assist in blood pressure control. 4. patient to be out of bed, recommend walking program, physical therapy, orders initiated. Job ID: [id number] [facility]
[2020-10-23] MEDS: Fluconazole In NaCl,Iso-Osm 100 MG in Admixture Fee 1 EACH IVPB SCH (13:14)
--- NOTE | 2020-10-23 14:30 | PDOC.FPRHP ---
- History of Present Illness Chief Complaint: None History of Present Illness: This is a pleasant 85 yo M who presents as a consult to the Family Medicine service for management of his HTN. He has a history of bladder cancer and is under the care of Dr. Castro (urology) and Dr. Cortez (PCP). He underwent a radical prostatectomy/cystectomy with bilateral pelvic lymph node dissection and ileal conduit diversion on 10/19/20. He reports some mild postop discomfort around his incision site. He denies headache, fever, chills, cough, or SOB. He reports he is passing gas but has not stooled yet. 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 He is with children. He has a past smoking history, quit 40 years ago. Denies alcohol or drug use. - Review of Systems General: denies: fever/chills, weight/appetite/sleep changes ENT: denies: nasal congestion, rhinorrhea Respiratory: denies: cough, shortness of breath Cardiovascular: denies: chest pain, palpitation Gastrointestinal: reports: abdominal pain. denies: nausea, vomiting, diarrhea, constipation Musculoskeletal: denies: pain, tenderness, swelling, arthritis/arthralgias Neurological: denies: numbness, syncope, seizure, weakness Psychological: denies: anxiety, depression - Vital signs BP: 155/68 HR: 76 RR: 16 Tmax: 98.3 Pox: 99% on RA Wt: 63 kg - Physical Exam Constitutional: NAD, awake, alert and oriented, other (cachectic) HEENT: normocephalic and atraumatic, PERRLA, EOMI, conjunctiva clear, no scleral icterus, grossly normal hearing, MMM, oropharynx clear Neck: supple, FROM, trachea midline Heart: RRR, pulses present, no edema, other (1/6 systolic murmur) Lungs: CTAB, no respiratory distress, good air movement, no rales/rhonchi, no wheezing Abdomen: soft, bowel sounds present, other (kiara present over incision sight. Urostomy present. MELY drain present with serosanguinous drainage.) Musculoskeletal: normal structure, normal tone, ROM grossly normal Neurological: no focal deficit Skin: no rash/lesions, good turgor, capillary refill <2 seconds Heme/Lymphatic: no unusual bruising or bleeding, no purpura Psychiatric: normal mood and affect, good judgment and insight, intact recent and remote memory FMR H&P: Results - Labs Result Diagrams: 10/23/20 14:58 10/23/20 05:20 Lab results: WBC 7.3 thou/uL (4.8-10.8) 10/23/20 05:20 Hgb 7.4 g/dL (14.0-18.0) L 10/23/20 05:20 Hct 21.9 % (42.0-52.0) L 10/23/20 05:20 MCV 94.0 fL (78.0-98.0) 10/23/20 05:20 Plt Count 162 thou/uL (130-400) 10/23/20 05:20 Neutrophils % 62.5 % (42.0-75.0) 10/23/20 05:20 Sodium 137 mmol/L (136-145) 10/23/20 05:20 Potassium 3.7 mmol/L (3.5-5.1) 10/23/20 05:20 Chloride 105 mmol/L (98-107) 10/23/20 05:20 Carbon Dioxide 25 mmol/L (23-31) 10/23/20 05:20 BUN 23 mg/dL (8.4-25.7) 10/23/20 05:20 Creatinine 1.01 mg/dL (0.7-1.3) 10/23/20 05:20 Glucose 84 mg/dL (83-110) 10/23/20 05:20 Calcium 8.4 mg/dL (7.8-10.44) 10/23/20 05:20 FMR H&P: A/P - Plan 1. POD # 4 from radical prostatectomy/cystectomy with bilateral pelvic lymph node dissection and ileal conduit diversion on 10/19/[address] Castro. Recommendations per Dr. Castro. Continue PT/OT, ostomy education. 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 Surgical margins of urinary bladder free of maligna ncy. Lymph nodes negative for carcinoma. -On rocephin and fluconazole. -Pain control with tylenol, ibuprofen, tramadol. -Bowel regimen: dulcolax, docusate . -Zofran and phenergan PRN. 2. HTN. Continue home amlodipine 10 mg. Start lisinopril 5 mg, goal blood pressure <150/90. Hydralazine PRN. 3. Acute blood loss anemia. S/p 2 u PRBCs 10/21. -On ASA and ppx lovenox. Hgb at 9.3, up from 7.4 yesterday. -MELY drain 110 ml, improving. 4. Hyponatremia, resolved. Na of 137 today. IVF: NS @ 50 ml/hr Lines: MELY, right IJ CVC GI ppx: pepcid DVT ppx: lovenox PCP: [facility] Urology: Dr. Castro Diet: Regular Dispo: Continue PT/OT. Per notes of urology, potential discharge on Sunday. Farhat Collins MD PGY3 Addendum - Attending - Attending Attestation Date/Time: 10/23/20 3852 I personally evaluated the patient and discussed the management with Dr. Collins. I agree with the History, Examination, Assessment and Plan documented above with any addition or exceptions noted below. agree with lisinopril therapy. consider rehab placement following acute stay.
[2020-10-23 15:15] LABS: Hemoglobin 9.3 g/dL (14.0-18.0)
[2020-10-23] MEDS ORDERED: Lisinopril 5 MG TAB PO SCH (16:00)
[2020-10-23] MEDS: cefTRIAXone\\ROCEPHIN 1 GM in Sodium Chloride 0.9% 100 ML IVPB SCH (16:38)
[2020-10-24] MEDS: Sodium Chloride 0.9% 1,000 ML IV SCH ×4 (00:04→23:26)
[2020-10-24] MEDS: Acetaminophen 500 MG TAB PO SCH ×4 (04:02→19:41)
[2020-10-24 04:30] LABS: #Eosinphils 0.7 thou/uL (0.0-0.7); #Lymphocytes 1.4 thou/uL (1.20-3.40); #Monocytes 0.6 thou/uL (0.11-0.59); #Neutrophils 4.8 thou/uL (1.40-6.50); %Basophils 0.3 % (0.0-1.0); %Eosinophils 9.9 % (0.0-10.0); %Lymphocytes 18.2 % (21.0-51.0); %Monocytes 7.3 % (0.0-10.0); %Neutrophils 64.2 % (42.0-75.0); Hemoglobin 7.9 g/dL (14.0-18.0); Mean Corpuscular Hemoglobin 31.1 pg (27.0-31.0); Mean Corpuscular Volume 94.1 fL (78.0-98.0); Mean Platelet Volume 6.8 fL (7.4-10.4); Platelet Count 211 thou/uL (130-400); RBC Distribution Width 13.4 % (11.5-14.5); Red Blood Cell (RBC) Count 2.54 mill/uL (4.70-6.10); White Blood Cell (WBC) Count 7.5 thou/uL (4.8-10.8)
[2020-10-24 04:42] LABS: Anion Gap 9 mmol/L (10-20); BUN (Urea Nitrogen) 22 mg/dL (8.4-25.7); Calc. Creatinine Clearance 51 mL/min (70-130); Calcium 8.4 mg/dL (7.8-10.44); Carbon Dioxide 27 mmol/L (23-31); Chloride 105 mmol/L (98-107); Glucose 89 mg/dL (83-110); Potassium 3.4 mmol/L (3.5-5.1); Sodium 138 mmol/L (136-145)
--- NOTE | 2020-10-24 06:11 | PDOC.FM ---
- Subjective Subjective: No acute overnight events. Feeling well this AM. States his pain is well controlled. He has no complaints this AM, sad to be missing judaism today. - Objective Vital Signs & Weight: Vital Signs (12 hours) Temp Pulse Resp BP BP Pulse Ox 10/24/20 00:09 98.5 F 65 16 138/52 L 99 10/23/20 20:05 98.6 F 74 18 133/68 99 Weight Weight 62.596 kg I&O: 10/22/20 10/23/20 10/24/20 06:59 06:59 06:59 Intake Total 19990 600 Output Total 1407 0876 1651 Balance -568 -5318 -3260 Result Diagrams: 10/24/20 04:05 10/24/20 04:05 Phys Exam - Physical Examination Constitutional: NAD HEENT: moist MMs Neck: supple Respiratory: no wheezing, no rales, clear to auscultation bilateral Cardiovascular: RRR, no significant murmur Gastrointestinal: soft Musculoskeletal: no edema, pulses present Neurological: moves all 4 limbs Psychiatric: normal affect, A&O x 3 Skin: cap refill <2 seconds Dx/Plan - Plan Plan: 85 y/o M s/p radical prostatectomy/cystectomy, consulted for managmenet of hypertension: 1. POD # 4 from radical prostatectomy/cystectomy with bilateral pelvic lymph no de dissection and ileal conduit diversion on 10/19/[address] Castro. Management per Dr. Castro. Continue PT/OT, ostomy education. 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 Surgical margins of urinary bladder free of malignancy. Lymph nodes negative for carcinoma. -On rocephin and fluconazole. -Pain control with tylenol, ibuprofen, tramadol. -Bowel regimen: dulcolax, docusate . -Zofran and phenergan PRN. 2. HTN. Continue home amlodipine 10 mg. Start lisinopril 5 mg, goal blood pressure <150/90. Hydralazine PRN. Mildly elevated BP this AM, taken before AM meds given. No changes to regimen. 3. Acute blood loss anemia. S/p 2 u PRBCs 10/21. -On ASA and ppx lovenox. Hgb at 9.3, up from 7.4 yesterday. -MELY drain 110 ml, improving. 4. Hyponatremia, resolved. 5. Hypokalemia Mild, asx. Repleted with PO. Continue to monitor IVF: NS @ 50 ml/hr Lines: MELY, right IJ CVC GI ppx: pepcid DVT ppx: lovenox PCP: [facility] Urology: Dr. Castro Diet: Regular Dispo: Continue PT/OT. Per notes of urology, potential discharge on Sunday. Addendum - Attending - Attending Attestation Date/Time: 10/24/20 4534 I personally evaluated the patient and discussed the management with Dr. Jackson. I agree with the History, Examination, Assessment and Plan documented above with any addition or exceptions noted below. continue lisinopril today. If BP remains <150/90, will sign off tomorrow. Would strongly consider SNF v Rehab following post acute stay.
[2020-10-24] MEDS ORDERED: Potassium Chloride 20 MEQ TAB PO SCH (08:30)
[2020-10-24] MEDS: Amlodipine 10 MG TAB PO SCH (08:40)
[2020-10-24] MEDS: Furosemide 20 MG/2 ML VIAL SLOW IVP SCH (08:40)
[2020-10-24] MEDS: Famotidine/PF 20 mg/2ml Vial SLOW IVP SCH (08:40)
[2020-10-24] MEDS: Lisinopril 5 MG TAB PO SCH (08:40)
[2020-10-24] MEDS: Enoxaparin Sodium 40 MG/0.4 ML SYRINGE SC SCH (08:42)
[2020-10-24] MEDS: Docusate 100 MG CAP PO SCH ×2 (08:43→19:41)
[2020-10-24] MEDS: Ibuprofen 600 MG TAB PO SCH ×3 (08:44→19:42)
[2020-10-24] MEDS: Aspirin 81 mg Enteric Coated Tablet PO SCH (08:45)
[2020-10-24] MEDS ORDERED: Enoxaparin Sodium 40 MG/0.4 ML SYRINGE SC SCH (09:00)
[2020-10-24] MEDS: Ondansetron PF 4 MG/2 ML Vial IVP PRN (09:36)
[2020-10-24] MEDS: Fluconazole In NaCl,Iso-Osm 100 MG in Admixture Fee 1 EACH IVPB SCH (09:39)
--- NOTE | 2020-10-24 12:08 | PRG ---
DATE OF SERVICE: 10/24/2020 SUBJECTIVE: The patient relates having loose bowel movement, however, is nauseated and had emesis x2, bilious per nurse. Walking program was ordered yesterday, patient has been ambulating more aggressively. Blood pressure better. Appreciate Family Medicine consult regarding hypertension. OBJECTIVE: VITAL SIGNS: no fever , blood pressure 135/49. I's and O's 1740 in and 2670 out. MELY is 120 mL of serosanguineous. Urine output clear. GENERAL: Frail, elderly male. HEART: Regular rate. LUNGS: Clear. ABDOMEN: No significant distention. Exam is stable. Bowel sounds are present, however, somewhat diminished from yesterday's exam. EXTREMITIES: No cyanosis, clubbing, or edema. Conduit is pink and viable. PERTINENT LABORATORY DATA: White count 7.5, hemoglobin 7.9, platelet 211. BMP profile is within normal limits. IMPRESSION AND PLAN: 1. Mr. Call is an 85-year-old pleasant male, postop day #5, status post radical cystoprostatectomy, ileal conduit, bilateral pelvic lymph node dissection. 2. Hypertension. Appreciate Family Medicine consult. will continue amlodipine and lisinopril has been added, hydralazine p.r.n. 3. Advanced age. 4. Postop ileus. He is having bowel movements, however, emesis x2. increase V fluids to 100 mL, n.p.o. except medications and sips of water. patient is to be aggressively out of bed with physical therapy walking program. Postop anemia status post 2 unit H&H trends relatively stable Repeat labs in the morning. Dr. Castro will resume his care tomorrow. Job ID: [id number] [facility]
[2020-10-24] MEDS: cefTRIAXone\\ROCEPHIN 1 GM in Sodium Chloride 0.9% 100 ML IVPB SCH (14:05)
[2020-10-25 04:20] LABS: Hemoglobin 7.3 g/dL (14.0-18.0); Mean Corpuscular HGB CONC 32.9 g/dL (32.0-36.0); Mean Corpuscular Hemoglobin 31.2 pg (27.0-31.0); Mean Platelet Volume 6.5 fL (7.4-10.4); Platelet Count 232 thou/uL (130-400); RBC Distribution Width 13.4 % (11.5-14.5); Red Blood Cell (RBC) Count 2.34 mill/uL (4.70-6.10); White Blood Cell (WBC) Count 7.8 thou/uL (4.8-10.8)
[2020-10-25] MEDS: Acetaminophen 500 MG TAB PO SCH ×4 (04:35→19:31)
--- NOTE | 2020-10-25 06:58 | PDOC.FM ---
- Subjective Subjective: No acute overnight events. Reports feeling hungry, thirsty this AM. Having BMs but nausea continued although denies further vomiting. - Objective Vital Signs & Weight: Vital Signs (12 hours) Temp Pulse Resp BP BP Pulse Ox 10/25/20 04:00 98.5 F 69 18 144/56 H 99 10/24/20 23:24 98.3 F 74 18 153/59 H 96 10/24/20 20:25 99 10/24/20 19:46 98.6 F 63 18 138/55 L 99 Weight Weight 62.596 kg I&O: 10/23/20 10/24/20 10/25/20 06:59 06:59 06:59 Intake Total 2430 1740 2350 Output Total 3585 2670 2110 Balance -1155 -930 240 Result Diagrams: 10/25/20 04:04 10/24/20 04:05 Phys Exam - Physical Examination Constitutional: NAD HEENT: sclera anicteric Neck: supple Respiratory: no rales, clear to auscultation bilateral Cardiovascular: RRR, no significant murmur Gastrointestinal: soft, no distention, positive bowel sounds midline incision w/kiara; ileal conduit in place Musculoskeletal: no edema, pulses present Neurological: moves all 4 limbs Psychiatric: normal affect, A&O x 3 Skin: cap refill <2 seconds Dx/Plan - Plan Plan: Hypertension BP relatively well controlled, goal at his age is <150/90. Currently on amlodipine, lisinopril. - continue current regimen - monitor renal function - if planning to DC with lisinopril as new medication, would recheck BMP in 1 week s/p radical prostatectomy/cystectomy w/ ileal conduit Now POD #6, management per urology as primary team. Acute blood loss anemia Noted Hgb 7.3, pt asymptomatic. Management per urology as primary team Ileus, suspected Suspected due to emesis yesterday, was made NPO for conservative management. Continued nausea today. Management per urology as primary team. Hypokalemia Mild hypokalemia yesterday, replaced orally. - monitor K on BMP Addendum - Attending - Attending Attestation Date/Time: 10/25/20 1130 I personally evaluated the patient and discussed the management with Dr. Jackson. I agree with the History, Examination, Assessment and Plan documented above with any addition or exceptions noted below.
[2020-10-25] MEDS: Ibuprofen 600 MG TAB PO SCH ×3 (09:08→19:31)
[2020-10-25] MEDS: Lisinopril 5 MG TAB PO SCH (09:09)
[2020-10-25] MEDS: Amlodipine 10 MG TAB PO SCH (09:10)
[2020-10-25] MEDS: Aspirin 81 mg Enteric Coated Tablet PO SCH (09:10)
[2020-10-25] MEDS: Docusate 100 MG CAP PO SCH ×2 (09:10→19:31)
[2020-10-25] MEDS: Furosemide 20 MG/2 ML VIAL SLOW IVP SCH (09:11)
[2020-10-25] MEDS: Enoxaparin Sodium 40 MG/0.4 ML SYRINGE SC SCH (09:11)
[2020-10-25] MEDS: Sodium Chloride 0.9% 1,000 ML IV SCH ×3 (09:11→19:33)
[2020-10-25] MEDS: Famotidine/PF 20 mg/2ml Vial SLOW IVP SCH (09:11)
[2020-10-25] MEDS: Fluconazole In NaCl,Iso-Osm 100 MG in Admixture Fee 1 EACH IVPB SCH (09:12)
--- NOTE | 2020-10-25 09:46 | PRG ---
DATE OF SERVICE: 10/25/2020 SUBJECTIVE: Doing well overnight. No further episodes of emesis or nausea. He feels hungry today. He does report bowel movement and passing flatus over the past 24 hours. He denies headaches, chest pain, difficulty breathing, or fevers. OBJECTIVE: Afebrile. Vitals are stable. Blood pressure improved. Output from drain 110. Urine output 1800. Bowel movement 1. No acute distress. Unlabored breathing. Heart; regular rate and rhythm. Abdomen; soft, nontender, nondistended. Ileal conduit in good position- viable, stents draining clear urine. No peripheral edema. LABORATORY DATA: Hemoglobin 7.3. ASSESSMENT AND PLAN: Postop day 7, radical cystoprostatectomy with ileal conduit and bilateral pelvic lymph node dissection. Routine postop care, out of bed, ambulate, incentive spirometry, gastrointestinal and deep venous thrombosis prophylaxis, SCDs. Resume regular diet. I will reduce or discontinue his IV fluids if he is tolerating diet throughout the day. We can likely begin disconnecting the drainage bag from the urostomy appliance. I will remove his drain later today if he is doing well. Anemia - this seems to be an issue of dilution while drawing labs from his central line. There is no other reasonable explanation for why his hemoglobin would go from 8-9 to 7-9 and back down to 7 over the past few days. Hypertension, well controlled, now with lisinopril and amlodipine. Discharge anticipated for tomorrow or Sunday. Job ID: [id number] [facility]
[2020-10-25 11:53] LABS: Anion Gap 12 mmol/L (10-20); BUN (Urea Nitrogen) 18 mg/dL (8.4-25.7); Calc. Creatinine Clearance 53 mL/min (70-130); Calcium 8.2 mg/dL (7.8-10.44); Carbon Dioxide 24 mmol/L (23-31); Chloride 109 mmol/L (98-107); Glucose 124 mg/dL (83-110); Potassium 3.6 mmol/L (3.5-5.1); Sodium 141 mmol/L (136-145)
[2020-10-25] MEDS: cefTRIAXone\\ROCEPHIN 1 GM in Sodium Chloride 0.9% 100 ML IVPB SCH (14:18)
[2020-10-26] MEDS: Acetaminophen 500 MG TAB PO SCH ×4 (03:30→19:49)
--- NOTE | 2020-10-26 06:22 | PDOC.FM ---
- Subjective Subjective: No acute overnight events. Feeling well, ready to go home and anticipates DC today. No headache, chest pain, SOB. - Objective Vital Signs & Weight: Vital Signs (12 hours) Temp Pulse Resp BP BP Pulse Ox 10/26/20 03:57 99.7 F H 75 18 145/52 H 97 10/25/20 23:51 98.8 F 62 16 145/57 H 99 10/25/20 20:25 99 10/25/20 19:08 98.5 F 68 16 148/60 H 99 Weight Weight 62.596 kg I&O: 10/24/20 10/25/20 10/26/20 06:59 06:59 06:59 Intake Total 1740 2350 2770 Output Total 2670 2110 2380 Balance -930 240 390 Result Diagrams: 10/26/20 11:38 10/25/20 11:03 Phys Exam - Physical Examination Constitutional: NAD HEENT: moist MMs, sclera anicteric Neck: supple Respiratory: clear to auscultation bilateral Cardiovascular: RRR Gastrointestinal: soft, no distention, positive bowel sounds mild incisional tenderness Musculoskeletal: no edema, pulses present Neurological: moves all 4 limbs Psychiatric: normal affect, A&O x 3 Skin: cap refill <2 seconds Dx/Plan - Plan Plan: Hypertension BP relatively well controlled, goal at his age is <150/90. Currently on amlodipine, lisinopril. - continue current regimen - monitor renal function - if planning to DC with lisinopril as new medication, would recheck BMP in 1 week to monitor K, Cr s/p radical prostatectomy/cystectomy w/ ileal conduit Now POD #7, management per urology as primary team. Acute blood loss anemia Noted Hgb 7.3, pt asymptomatic. Management per urology as primary team Hypokalemia, resolved Repleted with PO K. Addendum - Attending - Attending Attestation Date/Time: 10/26/20 1207 I personally evaluated the patient and discussed the management with Dr. Jackson. I agree with the History, Examination, Assessment and Plan documented above with any addition or exceptions noted below. BP stable. Stable for discharge from our standpoint, final dispo per Urology.
[2020-10-26] MEDS: Ibuprofen 600 MG TAB PO SCH ×3 (08:24→19:50)
[2020-10-26] MEDS: Aspirin 81 mg Enteric Coated Tablet PO SCH (08:25)
[2020-10-26] MEDS: Lisinopril 5 MG TAB PO SCH (08:25)
[2020-10-26] MEDS: Furosemide 20 MG/2 ML VIAL SLOW IVP SCH (08:25)
[2020-10-26] MEDS: Amlodipine 10 MG TAB PO SCH (08:25)
[2020-10-26] MEDS: Famotidine/PF 20 mg/2ml Vial SLOW IVP SCH (08:25)
[2020-10-26] MEDS: Docusate 100 MG CAP PO SCH ×2 (08:26→19:50)
[2020-10-26] MEDS: Fluconazole In NaCl,Iso-Osm 100 MG in Admixture Fee 1 EACH IVPB SCH (08:26)
[2020-10-26] MEDS: Enoxaparin Sodium 40 MG/0.4 ML SYRINGE SC SCH (08:26)
[2020-10-26] MEDS ORDERED: Vancomycin HCl 0.75 GM in Sodium Chloride 0.9% 250 ML 250 ML IVPB SCH (10:15)
--- NOTE | 2020-10-26 10:44 | RAD ---
CHEST PA AND LATERAL: HISTORY: Postoperative fever . COMPARISON: 10/19/2020. FINDINGS: There is a right-sided jugular vascular catheter which appears to terminate along the lateral aspect of the right hemithorax and may be in the subclavian vein. Heart: Normal cardiac silhouette. Aorta: Atherosclerosis. Pulmonary vessels: Normal. Costophrenic angles: Costophrenic angles are clear. Lungs: Hyperinflation with mild chronic changes. No mass or consolidation. Pneumothorax: No pneumothorax. Osseous structures: No osseous abnormalities. Additional findings: There appears be a small focus of air underneath the right hemidiaphragm. Correl ate for pneumoperitoneum. Findings may be iatrogenic. IMPRESSION: 1. Right-sided jugular catheter as above. 2. Pneumoperitoneum as above. Results of the study conveyed to Dr. Kyle Castro via [facility] 10/26/2020 at 10:42 AM Code CR Transcribed Date/Time: 10/26/2020 10:57 AM
[2020-10-26 11:54] LABS: #Eosinphils 0.4 thou/uL (0.0-0.7); #Lymphocytes 2.1 thou/uL (1.20-3.40); #Monocytes 0.6 thou/uL (0.11-0.59); #Neutrophils 4.9 thou/uL (1.40-6.50); %Basophils 0.3 % (0.0-1.0); %Eosinophils 5.2 % (0.0-10.0); %Lymphocytes 26.1 % (21.0-51.0); %Monocytes 7.8 % (0.0-10.0); %Neutrophils 60.6 % (42.0-75.0); Hemoglobin 6.8 g/dL (14.0-18.0); Mean Corpuscular HGB CONC 32.3 g/dL (32.0-36.0); Mean Corpuscular Volume 95.9 fL (78.0-98.0); Mean Platelet Volume 6.2 fL (7.4-10.4); Platelet Count 284 thou/uL (130-400); RBC Distribution Width 13.1 % (11.5-14.5); Red Blood Cell (RBC) Count 2.19 mill/uL (4.70-6.10); White Blood Cell (WBC) Count 8.1 thou/uL (4.8-10.8)
--- NOTE | 2020-10-26 12:14 | PRG ---
DATE OF SERVICE: 10/26/2020 SUBJECTIVE: No acute events overnight. No fevers, nausea, chest pain, difficulty breathing. He has been tolerating diet and had three bowel movements yesterday, which he reports were partially formed. OBJECTIVE: VITAL SIGNS: T-max overnight 99.7, however, I noted upon starting to workup his discharge, he has now developed fever of 101.7. Otherwise, vitals stable. Good urine output. ABDOMEN: Soft, nontender. Incision healing well. Urostomy healthy. No peripheral edema. Central line insertion site appears healthy. No redness. ASSESSMENT AND PLAN: Postop day 8, radical cystoprostatectomy with ileal conduit and bilateral pelvic lymph node dissection. Postop fever, chest x-ray, peripheral blood culture, central line culture, catheter tip culture ordered, CBC and BMP ordered stat. Transitioning to vancomycin and Levaquin. Likely source is either central line or possibly pneumonia. Urine culture will be unhelpful in the setting of ileal conduit. C diff remains a remote possibility, although so far he has not had any symptoms suggestive of this. Discharge seems that it will be held for at least 2 days while we await culture results. Otherwise, continue routine postop care. Job ID: [id number]
[2020-10-26 12:16] LABS: Anion Gap 9 mmol/L (10-20); BUN (Urea Nitrogen) 10 mg/dL (8.4-25.7); Calc. Creatinine Clearance 57 mL/min (70-130); Calcium 7.7 mg/dL (7.8-10.44); Carbon Dioxide 26 mmol/L (23-31); Chloride 107 mmol/L (98-107); Glucose 109 mg/dL (83-110); Potassium 3.1 mmol/L (3.5-5.1); Sodium 139 mmol/L (136-145)
[2020-10-26] MEDS ORDERED: Potassium Chloride 20 MEQ TAB PO SCH (13:15)
[2020-10-26] MEDS: Vancomycin HCl 750 MG in Sodium Chloride 0.9% 250 ML 250 ML IVPB SCH (14:15)
[2020-10-26] MEDS: Sodium Chloride 0.9% 1,000 ML IV SCH (14:15)
[2020-10-27] MEDS: Sodium Chloride 0.9% 1,000 ML IV SCH (02:37)
[2020-10-27] MEDS: Acetaminophen 500 MG TAB PO SCH ×5 (03:14→19:38)
--- NOTE | 2020-10-27 06:12 | PDOC.FM ---
- Subjective Subjective: Yesterday developed fever, remains in hospital for post-op fever per primary team. This AM, reports he is feeling well, denies fever, chills, pain, headache, cough, SOB. - Objective Vital Signs & Weight: Vital Signs (12 hours) Temp Pulse Resp BP Pulse Ox 10/27/20 04:08 98.9 F 60 16 160/55 H 99 10/26/20 23:53 98.0 F 58 L 16 137/51 L 98 10/26/20 20:10 99 10/26/20 19:10 98.3 F 62 18 146/53 H 99 Weight Weight 62.596 kg I&O: 10/25/20 10/26/20 10/27/20 06:59 06:59 06:59 Intake Total 2350 2770 2000 Output Total 2110 2380 1825 Balance 240 390 175 Result Diagrams: 10/27/20 05:32 10/27/20 05:32 Phys Exam - Physical Examination Constitutional: NAD HEENT: moist MMs, sclera anicteric dressing over R neck Neck: supple Respiratory: no rales, clear to auscultation bilateral Cardiovascular: RRR, no significant murmur Gastrointestinal: soft mild incisional tenderness Musculoskeletal: no edema, pulses present Neurological: non-focal, moves all 4 limbs Psychiatric: normal affect, A&O x 3 Skin: cap refill <2 seconds Dx/Plan - Plan Plan: Hypertension BP relatively well controlled, goal at his age is <150/90. Currently on aml odipine, lisinopril. - continue current regimen - monitor renal function - if planning to DC with lisinopril as new medication, would recheck BMP in 1 week to monitor K, Cr s/p radical prostatectomy/cystectomy w/ ileal conduit Now POD #8, management per urology as primary team. Post op fever noted 3/2. Workup and management per urology. Noted vanc, levaquin, cultures pending. Acute blood loss anemia Noted Hgb 7.3, pt asymptomatic. Management per urology as primary team Hypokalemia, resolved Repleted with PO K. Addendum - Attending - Attending Attestation Date/Time: 10/27/20 0321 I personally evaluated the patient and discussed the management with Dr. Jackson. I agree with the History, Examination, Assessment and Plan documented above with any addition or exceptions noted below. Consulted for BP mgmt. It has been very well controlled on current regimen. Some spikes this morning, but hopeful that diminishes back to baseline after his morning meds. Continue to follow and adjust as needed.
[2020-10-27 06:18] LABS: #Eosinphils 0.9 thou/uL (0.0-0.7); #Lymphocytes 2.1 thou/uL (1.20-3.40); #Monocytes 0.6 thou/uL (0.11-0.59); #Neutrophils 4.3 thou/uL (1.40-6.50); %Basophils 0.4 % (0.0-1.0); %Eosinophils 11.7 % (0.0-10.0); %Lymphocytes 26.2 % (21.0-51.0); %Neutrophils 54.7 % (42.0-75.0); Hemoglobin 7.6 g/dL (14.0-18.0); Mean Corpuscular HGB CONC 31.8 g/dL (32.0-36.0); Mean Corpuscular Hemoglobin 31.1 pg (27.0-31.0); Mean Corpuscular Volume 97.6 fL (78.0-98.0); Mean Platelet Volume 6.4 fL (7.4-10.4); Platelet Count 293 thou/uL (130-400); Red Blood Cell (RBC) Count 2.44 mill/uL (4.70-6.10); White Blood Cell (WBC) Count 7.8 thou/uL (4.8-10.8)
[2020-10-27 06:38] LABS: Anion Gap 11 mmol/L (10-20); BUN (Urea Nitrogen) 12 mg/dL (8.4-25.7); Calc. Creatinine Clearance 67 mL/min (70-130); Calcium 7.8 mg/dL (7.8-10.44); Carbon Dioxide 23 mmol/L (23-31); Chloride 109 mmol/L (98-107); Glucose 101 mg/dL (83-110); Potassium 3.5 mmol/L (3.5-5.1); Sodium 139 mmol/L (136-145)
[2020-10-27] MEDS: Fluconazole In NaCl,Iso-Osm 100 MG in Admixture Fee 1 EACH IVPB SCH (07:59)
[2020-10-27] MEDS: Ibuprofen 600 MG TAB PO SCH ×3 (07:59→19:39)
[2020-10-27] MEDS: Docusate 100 MG CAP PO SCH ×2 (07:59→19:39)
[2020-10-27] MEDS: Enoxaparin Sodium 40 MG/0.4 ML SYRINGE SC SCH (08:03)
[2020-10-27] MEDS: Aspirin 81 mg Enteric Coated Tablet PO SCH (08:03)
[2020-10-27] MEDS: Famotidine/PF 20 mg/2ml Vial SLOW IVP SCH (08:03)
[2020-10-27] MEDS: Furosemide 20 MG/2 ML VIAL SLOW IVP SCH (08:03)
[2020-10-27] MEDS: Amlodipine 10 MG TAB PO SCH (08:07)
[2020-10-27] MEDS: Lisinopril 5 MG TAB PO SCH (08:07)
--- NOTE | 2020-10-27 11:24 | PRG ---
DATE OF SERVICE: 10/27/2020 SUBJECTIVE: No acute events overnight. He is tolerating small amounts of food throughout the day without nausea or vomiting. He denies fevers, chest pain, difficulty breathing. OBJECTIVE: VITAL SIGNS: He did have fever 101.7 yesterday, which delayed his discharge. However, his temperature has returned to normal ever since and his other vitals have been stable. Good urine output. GENERAL: No acute distress, conversant, unlabored breathing. CHEST: Symmetric chest expansion. HEART: Regular rate and rhythm. ABDOMEN: Soft, nontender, nondistended. Incision healing nicely with kiara in place. Urostomy viable both stents draining clear urine. LABORATORY DATA: White count 7.8, neutrophil 54.7%. Postop day 9, radical cystoprostatectomy, bilateral pelvic lymph node dissection and ileal conduit. Discharge was held yesterday after he developed fever. Blood cultures and central line culture have been sent. However, he immediately returned to baseline temperature and has not developed any change in his white count or neutrophil percent. He is currently on vancomycin and Levaquin. Blood cultures are pending. Should he do well throughout today, I expect I will be sending him home tomorrow morning and can follow up on his blood cultures as an outpatient. Job ID: [id number]
[2020-10-27] MEDS: Vancomycin HCl 750 MG in Sodium Chloride 0.9% 250 ML 250 ML IVPB SCH (12:38)
[2020-10-28] MEDS: Acetaminophen 500 MG TAB PO SCH ×2 (03:43→09:15)
[2020-10-28 05:10] VITALS: BP 154/57
--- NOTE | 2020-10-28 07:13 | PDOC.FM ---
- Subjective Subjective: No acute overnight events. Pleasant spirits. No complaints today. Looking forward to going home. - Objective Vital Signs & Weight: Vital Signs (12 hours) Temp Pulse Resp BP Pulse Ox 10/28/20 04:40 98.6 F 58 L 16 154/57 H 97 10/27/20 20:17 99 10/27/20 20:00 99.5 F 64 16 163/66 H 99 Weight Weight 62.596 kg I&O: 10/27/20 10/28/20 10/29/20 06:59 06:59 06:59 Intake Total 1999 1839 Output Total 1824 2200 Balance 175 -360 Result Diagrams: 10/27/20 05:32 10/27/20 05:32 Phys Exam - Physical Examination Constitutional: NAD HEENT: moist MMs, sclera anicteric Neck: supple dressing on R neck Respiratory: no wheezing, no rales, clear to auscultation bilateral Cardiovascular: RRR, no significant murmur Gastrointestinal: soft, no distention Musculoskeletal: no edema, pulses present Neurological: non-focal, moves all 4 limbs Psychiatric: normal affect, A&O x 3 Skin: cap refill <2 seconds Dx/Plan - Plan Plan: Hypertension One elevated BP overnight, but overall fairly well controlled. Goal <150/90. Currently on amlodipine, lisinopril. - continue current regimen - monitor renal function - would DC with lisinopril as new medication, and recheck BMP in 1 week after starting to monitor K, Cr s/p radical prostatectomy/cystectomy w/ ileal conduit Now POD #8, management per urology as primary team. Post op fever noted 3/2. Workup and management per urology. Noted vanc, levaquin, cultures pending. Acute blood loss anemia Noted Hgb 7.3, pt asymptomatic. Management per urology as primary team Hypokalemia, resolved Repleted with PO K. Addendum - Attending - Attending Attestation Date/Time: 10/28/20 5020 I personally evaluated the patient and discussed the management with Dr. Jackson. I agree with the History, Examination, Assessment and Plan documented above with any addition or exceptions noted below. Patient stable for discharge from HTN standpoint whenever primary team decides to discharge.
[2020-10-28 08:17] VITALS: TEMP 98.7
[2020-10-28] MEDS: Furosemide 20 MG/2 ML VIAL SLOW IVP SCH (08:34)
[2020-10-28] MEDS: Enoxaparin Sodium 40 MG/0.4 ML SYRINGE SC SCH (08:34)
[2020-10-28] MEDS: Amlodipine 10 MG TAB PO SCH (08:34)
[2020-10-28] MEDS: Lisinopril 5 MG TAB PO SCH (08:34)
[2020-10-28] MEDS: Famotidine/PF 20 mg/2ml Vial SLOW IVP SCH (08:34)
--- NOTE | 2020-10-28 08:42 | DIS ---
DATE OF ADMISSION: 10/19/2020 DATE OF DISCHARGE: 10/28/2020 DISCHARGE DIAGNOSES: Malignant neoplasm of bladder, malignant neoplasm of prostate, hypertension. HOSPITAL COURSE: The patient underwent radical cystoprostatectomy with ileal conduit and bilateral pelvic lymph node dissection on October 19. He received 2 units of packed red blood cell transfusion for blood loss anemia on the with good response. He was ready for discharge by the 26 of October, however, developed a single spike in temperature to 101.7. Cultures were sent and at the time of discharge are no growth to date. He had no fevers afterwards and has continued to do well. He has been ambulating, tolerating oral intake, and having bowel movements. He is no longer using any pain medication. He is ready for discharge today on October 28. DISCHARGE MEDICATIONS: He will resume all home medications and I have prescribed Keflex twice a day for the next 2 weeks. DISCHARGE PHYSICAL EXAMINATION: GENERAL: No acute distress. LUNGS: Unlabored breathing. HEART: Regular rate and rhythm. ABDOMEN: Soft, nontender, nondistended, kiara removed, conduit healthy. EXTREMITIES: No peripheral edema or cyanosis. FOLLOWUP PLAN: On November 08 for stent removal. Job ID: [id number]
[2020-10-28] MEDS: Ibuprofen 600 MG TAB PO SCH (09:15)
[2020-10-28] MEDS: Aspirin 81 mg Enteric Coated Tablet PO SCH (09:15)
[2020-10-28] MEDS: Docusate 100 MG CAP PO SCH (09:15)
== END 2020-10-28 10:35 | disposition home health service (06) | DRG 654 ==
LOC: EDSTATUS 09-07 14:00 → SURG A 10-19 07:17
PROVIDERS: ADMIT Urology; ATTEND Urology
PROC: 0TTB0ZZ Resection of Bladder, Open Approach (ICD-10-PCS; principal; 2020-10-19)
PROC: 0VT00ZZ Resection of Prostate, Open Approach (ICD-10-PCS; 2020-10-19)
PROC: 07BC0ZZ Excision of Pelvis Lymphatic, Open Approach (ICD-10-PCS; 2020-10-19)
PROC: 0T1 Urinary System, Bypass (ICD-10-PCS; 2020-10-19)
PROC: 30233N1 Transfusion of Nonautologous Red Blood Cells into Peripheral Vein, Percutaneous Approach (ICD-10-PCS; 2020-10-21)
DX: C67.0 Malignant neoplasm of trigone of bladder (principal); E87.1 Hypo-osmolality and hyponatremia; N17.9 Acute kidney failure, unspecified; D62 Acute posthemorrhagic anemia; K56.7 Ileus, unspecified; R64 Cachexia; Z68.1 Body mass index [BMI] 19.9 or less, adult; Z20.822 Contact with and (suspected) exposure to COVID-19; C61 Malignant neoplasm of prostate; I10 Essential (primary) hypertension; E83.51 Hypocalcemia; E87.6 Hypokalemia; R50.82 Postprocedural fever; Z79.82 Long term (current) use of aspirin; Z79.899 Other long term (current) drug therapy
CPT/HCPCS: 36415; 36430; 71045; 71046; 74018; 80048; 84134; 85025; 85027; 85610; 85730; 86850; 86900; 86901; 87040; 87071; 88305; 88307; 88309; 88331; J0694; J0696; J1100; J1450; J1650; J1940; J1956; J2001; J2370; J2405; J2550; J2704; J3010; J3370; J3480; J3490; J7050; P9016; S0020; S0028

== ENCOUNTER 2021-07-21 13:44 | Inpatient (IN) | payer OTHER, MEDICARE ==
[2021-07-21 16:40] LABS: #Eosinphils 0.2 thou/uL (0.0-0.7); #Lymphocytes 2.3 thou/uL (1.20-3.40); #Monocytes 0.5 thou/uL (0.11-0.59); #Neutrophils 3.7 thou/uL (1.40-6.50); %Basophils 0.3 % (0.0-1.0); %Eosinophils 2.3 % (0.0-10.0); %Lymphocytes 34.2 % (21.0-51.0); %Monocytes 7.7 % (0.0-10.0); %Neutrophils 55.5 % (42.0-75.0); Hemoglobin 12.8 g/dL (14.0-18.0); Mean Corpuscular HGB CONC 34.2 g/dL (32.0-36.0); Mean Corpuscular Hemoglobin 33.6 pg (27.0-31.0); Mean Corpuscular Volume 98.1 fL (78.0-98.0); Mean Platelet Volume 6.5 fL (7.4-10.4); Platelet Count 163 thou/uL (130-400); RBC Distribution Width 11.6 % (11.5-14.5); Red Blood Cell (RBC) Count 3.82 mill/uL (4.70-6.10); White Blood Cell (WBC) Count 6.7 thou/uL (4.8-10.8)
[2021-07-21 16:51] LABS: Prothrombin Time 13.6 sec (12.0-14.7)
[2021-07-21] MEDS ORDERED: traMADol HCl 50 MG TAB PO PRN (16:54)
[2021-07-21] MEDS ORDERED: Cyclobenzaprine 10 MG TAB PO PRN (16:55)
[2021-07-21] MEDS ORDERED: Ondansetron PF 4 MG/2 ML Vial IVP PRN (16:57)
[2021-07-21 17:00] LABS: ALT (SGPT) 10 U/L (8-55); AST (SGOT) 18 U/L (5-34); Albumin 3.8 g/dL (3.4-4.8); Alkaline Phosphatase 72 U/L (40-110); Anion Gap 10 mmol/L (10-20); BUN (Urea Nitrogen) 11 mg/dL (8.4-25.7); Calc. Creatinine Clearance 0 mL/min (70-130); Calcium 9.5 mg/dL (7.8-10.44); Carbon Dioxide 26 mmol/L (23-31); Chloride 103 mmol/L (98-107); Globulin 4.5 g/dL (2.4-3.5); Glucose 99 mg/dL (83-110); Potassium 4.2 mmol/L (3.5-5.1); Protein, Total 8.3 g/dL (5.8-8.1); Sodium 135 mmol/L (136-145)
[2021-07-21] MEDS ORDERED: Morphine 4 MG/ML VIAL SLOW IVP PRN (17:09)
[2021-07-21] MEDS ORDERED: hydrALAZINE 20 MG/ML VIAL SLOW IVP PRN (17:55)
[2021-07-21] MEDS ORDERED: traMADol HCl 50 MG TAB PO SCH (18:00)
[2021-07-21 18:45] VITALS: BMI 18.6
[2021-07-21] MEDS ORDERED: FLU VACC QS2021-22(65YR UP)/PF 240 MCG/0.7 ML SYRINGE IM ONE (19:15)
[2021-07-21] MEDS: Acetaminophen 500 MG TAB PO SCH (19:52)
[2021-07-21] MEDS: Sodium Chloride 0.9% 1,000 ML IV SCH (19:52)
[2021-07-21] MEDS: Famotidine/PF 20 mg/2ml Vial SLOW IVP SCH (19:53)
[2021-07-21] MEDS: Senokot S 8.6-50 MG TAB PO SCH (19:54)
[2021-07-21] MEDS ORDERED: Senokot S 8.6-50 MG TAB PO SCH (21:00)
[2021-07-21 23:03] LABS: SARS-CoV-2 NAA Rapid Test Not Detected (NotDetected)
[2021-07-22] MEDS: Acetaminophen 500 MG TAB PO SCH ×3 (00:22→12:51)
[2021-07-22] MEDS ORDERED: Neomycin-Polymyxin 1 ML AMP ONE (06:38)
[2021-07-22] MEDS ORDERED: Famotidine/PF 20 mg/2ml Vial ONE (06:44)
[2021-07-22] MEDS: Famotidine/PF 20 mg/2ml Vial SLOW IVP SCH ×2 (07:10→20:51)
[2021-07-22] MEDS ORDERED: Fentanyl 100 MCG/2 ML VIAL ONE ×2 (07:25→09:30)
[2021-07-22] MEDS ORDERED: CEFAZOLIN 1 GM VIAL SLOW IVP SCH (08:00)
[2021-07-22] MEDS ORDERED: ceFAZolin 2 GM/DEX 5% 100 ML BAG ONE (08:13)
[2021-07-22] MEDS ORDERED: PHENYLEPHRINE-NS 100 MCG/ML 10 ML SYRINGE ONE ×2 (08:20)
[2021-07-22] MEDS ORDERED: Ondansetron PF 4 MG/2 ML Vial ONE (08:20)
[2021-07-22] MEDS ORDERED: Metoclopramide HCl 10 MG/2 ML VIAL ONE (08:20)
[2021-07-22] MEDS ORDERED: Lidocaine 1% PF 5 ML VIAL ONE (08:20)
[2021-07-22] MEDS ORDERED: Dexamethasone 20 MG/5 ML VIAL ONE (08:20)
[2021-07-22] MEDS ORDERED: Ketorolac Tromethamine 30 MG/ML VIAL ONE (08:20)
[2021-07-22] MEDS ORDERED: PROPOFOL 200 MG/20 ML VIAL ONE (08:20)
[2021-07-22] MEDS ORDERED: Ondansetron HCl/PF 4 MG/2 ML Vial IVP PRN (08:44)
[2021-07-22] MEDS ORDERED: Morphine Sulfate 2 MG/ML SYRINGE SLOW IVP PRN (08:44)
[2021-07-22] MEDS ORDERED: Polyethylene Glycol 3350 17 GM Packet PO SCH (09:00)
[2021-07-22] MEDS ORDERED: Cepastat Lozenges 1 LOZ PO PRN (09:40)
[2021-07-22] MEDS ORDERED: Ondansetron PF 4 MG/2 ML Vial IVP PRN (09:40)
[2021-07-22] MEDS ORDERED: Milk Of Magnesia 30 ML UDCUP PO PRN (09:40)
[2021-07-22] MEDS ORDERED: Ondansetron ODT 4 MG TAB PO PRN (09:40)
[2021-07-22] MEDS ORDERED: Bisacodyl 10 MG SUPP PR PRN (09:40)
[2021-07-22] MEDS ORDERED: HYDROcodone/Acetaminophen 10/325 mg Tablet PO PRN ×2 (09:44)
[2021-07-22] MEDS ORDERED: Morphine 4 MG/ML VIAL SLOW IVP PRN (09:45)
[2021-07-22] MEDS: Polyethylene Glycol 3350 17 GM Packet PO SCH (12:52)
[2021-07-22] MEDS: Amlodipine 10 MG TAB PO SCH (12:52)
[2021-07-22] MEDS ORDERED: Artificial Tear Sol 15 ML BOT EA EYE PRN (13:03)
[2021-07-22] MEDS: Sodium Chloride 0.9% 1,000 ML IV SCH (14:52)
[2021-07-22] MEDS: Senokot S 8.6-50 MG TAB PO SCH ×2 (14:53→20:51)
[2021-07-22] MEDS: Ketorolac Tromethamine 30 MG/ML VIAL IVP SCH ×2 (15:27→20:51)
[2021-07-22] MEDS: CEFAZOLIN 2 GM, Admixture Fee 1 EACH in Sodium Chloride 0.9% 100 ML IVPB SCH (16:04)
[2021-07-22] MEDS: Aspirin 325 MG TAB PO SCH (20:50)
[2021-07-23] MEDS: CEFAZOLIN 2 GM, Admixture Fee 1 EACH in Sodium Chloride 0.9% 100 ML IVPB SCH (00:19)
[2021-07-23] MEDS: Ketorolac Tromethamine 30 MG/ML VIAL IVP SCH ×3 (03:29→14:43)
[2021-07-23 06:30] LABS: #Eosinphils 0.4 thou/uL (0.0-0.7); #Lymphocytes 2.4 thou/uL (1.20-3.40); #Monocytes 0.6 thou/uL (0.11-0.59); #Neutrophils 3.8 thou/uL (1.40-6.50); %Basophils 0.4 % (0.0-1.0); %Eosinophils 5.6 % (0.0-10.0); %Lymphocytes 33.2 % (21.0-51.0); %Monocytes 8.6 % (0.0-10.0); %Neutrophils 52.1 % (42.0-75.0); Hemoglobin 9.2 g/dL (14.0-18.0); Mean Corpuscular HGB CONC 33.6 g/dL (32.0-36.0); Mean Corpuscular Hemoglobin 33.4 pg (27.0-31.0); Mean Corpuscular Volume 99.4 fL (78.0-98.0); Mean Platelet Volume 6.6 fL (7.4-10.4); Platelet Count 134 thou/uL (130-400); RBC Distribution Width 11.4 % (11.5-14.5); Red Blood Cell (RBC) Count 2.77 mill/uL (4.70-6.10); White Blood Cell (WBC) Count 7.3 thou/uL (4.8-10.8)
[2021-07-23] MEDS ORDERED: traMADol HCl 50 MG TAB PO PRN (07:35)
[2021-07-23] MEDS: Aspirin 325 MG TAB PO SCH ×2 (09:55→20:22)
[2021-07-23] MEDS: Ferrous Gluconate 324 MG TAB PO SCH ×2 (09:56→20:22)
[2021-07-23] MEDS: Multivitamin W/ Minerals 1 TAB PO SCH (09:56)
[2021-07-23] MEDS: Famotidine/PF 20 mg/2ml Vial SLOW IVP SCH ×2 (09:56→20:22)
[2021-07-23] MEDS: Amlodipine 10 MG TAB PO SCH (09:56)
[2021-07-23] MEDS: Senokot S 8.6-50 MG TAB PO SCH ×2 (09:56→20:36)
[2021-07-23] MEDS: Polyethylene Glycol 3350 17 GM Packet PO SCH (09:57)
[2021-07-23] MEDS: traMADol HCl 50 MG TAB PO SCH ×3 (12:32→23:17)
[2021-07-23] MEDS: Ferrous Sulfate 325 MG TAB PO SCH (17:23)
[2021-07-23] MEDS: Ascorbic Acid 500 mg Chewable Tablet PO SCH (20:22)
[2021-07-24 06:03] LABS: #Eosinphils 0.7 thou/uL (0.0-0.7); #Monocytes 0.5 thou/uL (0.11-0.59); %Basophils 0.1 % (0.0-1.0); %Eosinophils 11.5 % (0.0-10.0); %Lymphocytes 32.2 % (21.0-51.0); %Monocytes 8.3 % (0.0-10.0); %Neutrophils 47.9 % (42.0-75.0); Hemoglobin 8.9 g/dL (14.0-18.0); Mean Corpuscular HGB CONC 33.5 g/dL (32.0-36.0); Mean Corpuscular Hemoglobin 33.4 pg (27.0-31.0); Mean Corpuscular Volume 99.8 fL (78.0-98.0); Mean Platelet Volume 6.5 fL (7.4-10.4); Platelet Count 140 thou/uL (130-400); RBC Distribution Width 11.6 % (11.5-14.5); Red Blood Cell (RBC) Count 2.65 mill/uL (4.70-6.10); White Blood Cell (WBC) Count 6.2 thou/uL (4.8-10.8)
[2021-07-24] MEDS: traMADol HCl 50 MG TAB PO SCH ×3 (06:15→18:08)
[2021-07-24] MEDS: Aspirin 325 MG TAB PO SCH ×2 (07:52→20:31)
[2021-07-24] MEDS: Polyethylene Glycol 3350 17 GM Packet PO SCH (07:52)
[2021-07-24] MEDS: Multivitamin W/ Minerals 1 TAB PO SCH (07:53)
[2021-07-24] MEDS: Ascorbic Acid 500 mg Chewable Tablet PO SCH ×2 (07:53→20:31)
[2021-07-24] MEDS: Senokot S 8.6-50 MG TAB PO SCH ×2 (07:53→20:32)
[2021-07-24] MEDS: Amlodipine 10 MG TAB PO SCH (07:53)
[2021-07-24] MEDS: Ferrous Gluconate 324 MG TAB PO SCH ×2 (07:53→20:32)
[2021-07-24] MEDS: Ferrous Sulfate 325 MG TAB PO SCH ×2 (07:53→17:40)
[2021-07-25] MEDS: traMADol HCl 50 MG TAB PO SCH ×2 (00:37→05:33)
[2021-07-25] MEDS: Ferrous Sulfate 325 MG TAB PO SCH (08:55)
[2021-07-25] MEDS: Ascorbic Acid 500 mg Chewable Tablet PO SCH (08:55)
[2021-07-25] MEDS: Polyethylene Glycol 3350 17 GM Packet PO SCH (08:55)
[2021-07-25] MEDS: Senokot S 8.6-50 MG TAB PO SCH (08:55)
[2021-07-25] MEDS: Aspirin 325 MG TAB PO SCH (08:56)
[2021-07-25] MEDS: Multivitamin W/ Minerals 1 TAB PO SCH (08:56)
[2021-07-25] MEDS: Ferrous Gluconate 324 MG TAB PO SCH (08:56)
[2021-07-25] MEDS: Amlodipine 10 MG TAB PO SCH (08:56)
[2021-07-25 11:54] VITALS: BP 117/57; TEMP 98.1
== END 2021-07-25 14:00 | disposition home health service (06) | DRG 481 ==
LOC: ERS 13:44 → SURG B 16:57
PROVIDERS: ADMIT Surgery; ATTEND Surgery
PROC: 0QS604Z Reposition Right Upper Femur with Internal Fixation Device, Open Approach (ICD-10-PCS; principal; 2021-07-21)
DX: S72.144A Nondisplaced intertrochanteric fracture of right femur, initial encounter for closed fracture (principal); E87.1 Hypo-osmolality and hyponatremia; D62 Acute posthemorrhagic anemia; Z20.822 Contact with and (suspected) exposure to COVID-19; W01.0XXA Fall on same level from slipping, tripping and stumbling without subsequent striking against object, initial encounter; E78.5 Hyperlipidemia, unspecified; E78.00 Pure hypercholesterolemia, unspecified; I10 Essential (primary) hypertension; Z85.51 Personal history of malignant neoplasm of bladder; Z87.891 Personal history of nicotine dependence; Z79.82 Long term (current) use of aspirin; Z79.899 Other long term (current) drug therapy; K59.00 Constipation, unspecified
CPT/HCPCS: 71045; 72195; 76000; 80053; 85025; 85610; 85730; 93005; C1713; G0390; J0690; J1100; J1885; J2405; J2704; J2765; J3010; J3490; J7050; S0028; U0002

== ENCOUNTER 2023-06-08 08:40 | Outpatient (CLI) | payer MEDICARE ==
[2023-06-08] MEDS ORDERED: Iopamidol 370 76% 100 ML VIAL ONE (10:05)
== END 2023-06-08 08:41 | disposition home or self-care (01) ==
LOC: BICCT 08:40
PROVIDERS: ATTEND Physician Assistant
DX: C67.9 Malignant neoplasm of bladder, unspecified (principal); I73.9 Peripheral vascular disease, unspecified; I70.0 Atherosclerosis of aorta; I70.203 Unspecified atherosclerosis of native arteries of extremities, bilateral legs; N28.1 Cyst of kidney, acquired
CPT/HCPCS: 75635; 76770; 82565; Q9967